=== PATIENT | female | born 1955 | race Caucasian/White ===

== ENCOUNTER 2024-02-26 17:23 | Inpatient (IN) | payer BC, MEDICARE, OTHER ==
--- NOTE | 2024-02-26 18:09 | ED ---
General Adult HPI - General Chief complaint: Recheck/Abnormal Lab/Rx Stated complaint: R Toe Infection Time Seen by Provider: 02/26/24 17:43 Source: patient Mode of arrival: ambulatory Limitations: no limitations - History of Present Illness Initial comments: 68-year-old female with a past medical history significant for type 2 diabetes presenting to the ED with a chief complaint of right toe infection. Patient reports initially about a week and a half ago started to experience some pain of her right great toe. Saw her PCP and was prescribed clindamycin 300 mg 3 times daily on 02/18/2024. Patient reports that she has been taking this as prescribed and finished her last dose last night. However, over the last 2 days has had increasing discoloration of her right great toe noting that it has started to become darker. Does note a history of neuropathy however does note that it seems to have worsened in pain as well. Denies any recent injury to the toe. No fever or chills. No chest pain shortness of breath. No other complaints at this time. - Related Data Home Medications Medication Instructions Recorded Confirmed Fluticasone Nasal [place] [Flonase 1 spr EA NOSTRIL DAILY 02/26/24 02/26/24 Nasal [place]] Insulin Glargine,Hum.rec.anlog 40 units SQ HS 02/26/24 02/26/24 [Lantus Solostar Pen] L.acidoph,Paracasei, B.lactis 1 cap PO DAILY 02/26/24 02/26/24 [Probiotic] Levothyroxine Sodium [Synthroid] 137 mcg PO DAILY 02/26/24 02/26/24 Losartan/Hydrochlorothiazide 1 tab PO DAILY 02/26/24 02/26/24 [Hyzaar 100-25 Tablet] Montelukast [Singulair] 10 mg PO HS 02/26/24 02/26/24 Pravastatin Sodium [Pravachol] 40 mg PO HS 02/26/24 02/26/24 Sennosides/Docusate Sodium 1 tab PO HS 02/26/24 02/26/24 [Senna-S 8.6-50 mg Tablet] Sodium Chloride [Saline Mist] 1 spr EA NOSTRIL DAILY PRN 02/26/24 02/26/24 Tirzepatide [Mounjaro] 10 mg SQ ORTIZ 02/26/24 02/26/24 amLODIPine [Norvasc] 10 mg PO DAILY 02/26/24 02/26/24 guaiFENesin [Mucinex] 600 mg PO BID 02/26/24 02/26/24 metFORMIN HCL 1,000 mg PO BID 02/26/24 02/26/24 traZODone HCL [Desyrel] 50 mg PO HS 02/26/24 02/26/24 Allergies Allergy/AdvReac Type Severity Reaction Status Date / Time Iodinated Contrast Media Allergy Rash/Hives Verified 02/26/24 20:25 Penicillins Allergy Rash/Hives Verified 02/26/24 20:25 Sulfa (Sulfonamide Allergy Rash/Hives Verified 02/26/24 20:25 Antibiotics) Review of Systems ROS Statement: Those systems with pertinent positive or pertinent negative responses have been documented in the HPI. ROS Other: All systems not noted in ROS Statement are negative. Past Medical History Past Medical History: Coronary Artery Disease (CAD), Diabetes Mellitus, Hypertension Additional Past Medical History / Comment(s): Heart Murmur. History of Any Multi-Drug Resistant Organisms: None Reported Past Surgical History: Section Past Psychological History: No Psychological Hx Reported Smoking Status: Never smoker Past Alcohol Use History: None Reported Past Drug Use History: None Reported General Exam Limitations: no limitations General appearance: alert, in no apparent distress Eye exam: Present: normal appearance Neck exam: Present: normal inspection Respiratory exam: Present: normal lung sounds bilaterally Cardiovascular Exam: Present: regular rate GI/Abdominal exam: Present: soft Extremities exam: Present: other (DP/PT pulses of right lower extremity intact. Right great toe does show peeling of skin with areas of redness, warmth, suzette thema. Does show areas of some dried blood and some ecchymosis and areas possibly concerning for gangrene) Neurological exam: Present: alert, oriented X3 Skin exam: Present: warm, dry Course Vital Signs 02/26/24 02/26/24 02/26/24 17:32 18:35 19:31 Temperature 98.2 F Pulse Rate 85 87 81 Respiratory 18 18 16 Rate Blood Pressure 184/82 165/81 169/67 O2 Sat by Pulse 99 97 96 Oximetry Medical Decision Making - Medical Decision Making Was pt. sent in by a medical professional or institution (, PA, OTR TANKER TRUCK DRIVER, urgent care, hospital, or longterm...) When possible be specific @ -No Did you speak to anyone other than the patient for history (EMS, parent, family, police, friend...)? What history was obtained from this source @ -No Did you review nursing and triage notes (agree or disagree)? Why? @ -I reviewed and agree with nursing and triage notes Were old charts reviewed (outside hosp., previous admission, EMS record, old EKG, old radiological studies, urgent care reports/EKG's, longterm records)? Report findings @ -No old charts were reviewed Differential Diagnosis (chest pain, altered mental status, abdominal pain women, abdominal pain men, vaginal bleeding, weakness, fever, dyspnea, syncope, headache, dizziness, GI bleed, back pain, seizure, CVA, palpatations, mental health, musculoskeletal)? @ -Differential Musculoskeletal Muscular strain, contusion, ligament sprain, fracture, arthritis, septic arthritis, bursitis, cellulitis, muscle spasm, nerve compression, DVT, arterial occlusion, herpes zoster, electrolyte abnormality, tumor.... This is not meant to be in all inclusive list EKG interpreted by me (3pts min.). @ -None X-rays interpreted by me (1pt min.). @ -X-ray of the right toe interpreted me which revealed no evidence of acute finding. CT interpreted by me (1pt min.). @ -None done U/S interpreted by me (1pt. min.). @ -None done What testing was considered but not performed or refused? (CT, X-rays, U/S, labs)? Why? @ -None What meds were considered but not given or refused? Why? @ -None Did you discuss the management of the patient with other professionals (professionals i.e. , PA, OTR TANKER TRUCK DRIVER, lab, RT, psych nurse, social studies teacher, property consultant, teacher, senior major gifts officer, corrections caseworker)? Give summary @ -Case discussed with Idris who accepts admission under [facility]. Was smoking cessation discussed for >3mins.? @ -No Was critical care preformed (if so, how long)? @ -No Were there social determinants of health that impacted care today? How? (Homelessness, low income, unemployed, alcoholism, drug addiction, transportation, low edu. Level, literacy, decrease access to med. care, retirement, rehab)? @ -No Was there de-escalation of care discussed even if they declined (Discuss DNR or withdrawal of care, Hospice)? DNR status @ -No What co-morbidities impacted this encounter? (DM, HTN, Smoking, COPD, CAD, Can cer, CVA, ARF, Chemo, Hep., AIDS, mental health diagnosis, sleep apnea, morbid obesity)? @ -Type 2 diabetes Was patient admitted / discharged? Hospital course, mention meds given and route, prescriptions, significant lab abnormalities, going to OR and other pertinent info. @ -Admission 68-year-old female with history of neuropathy and type 2 diabetes presented to the ED with complaints of right great toe pain. Reports approximately week and a half ago started to experience pain of her right great toe and was prescribed clindamycin 300 mg 3 times daily on 02/18/2024. Despite taking this medication she reports that pain has seemed to worsen in severity and reports increasing discoloration of her right great toe. Laboratory studies reviewed. CBC si gnificant for elevated white blood cell count at 13.3. Remainder of laboratory studies largely unremarkable. Patient will be admitted due to failure of outpatient treatment with worsening changes to with with consults to infectious disease and orthopedics. Undiagnosed new problem with uncertain prognosis? @ -No Drug Therapy requiring intensive monitoring for toxicity (Heparin, Nitro, Insulin, Cardizem)? @ -No Were any procedures done? @ -No Diagnosis/symptom? @ -Right great toe infection Acute, or Chronic, or Acute on Chronic? @ -Acute Uncomplicated (without systemic symptoms) or Complicated (systemic symptoms)? @ -Uncomplicated Side effects of treatment? @ -No Exacerbation, Progression, or Severe Exacerbation? @ -No Poses a threat to life or bodily function? How? (Chest pain, [place], [place], pneumonia, PE, COPD, DKA, ARF, appy, cholecystitis, CVA, Diverticulitis, Homicidal, Suicidal, threat to staff... and all critical care pts) @ -Possibly - Lab Data Result diagrams: 02/26/24 18:34 02/26/24 18:34 Lab Results 02/26/24 02/26/24 02/26/24 Range/Units 18:34 18:34 18:34 WBC 13.3 H (3.8-10.6) k/uL RBC 4.80 (3.80-5.40) m/uL Hgb 13.9 (11.4-16.0) gm/dL Hct 41.2 (34.0-46.0) % MCV 85.8 (80.0-100.0) fL MCH 29.1 (25.0-35.0) pg MCHC 33.9 (31.0-37.0) g/dL RDW 12.3 (11.5-15.5) % Plt Count 181 (150-450) k/uL MPV 7.6 Neutrophils % 75 % Lymphocytes % 19 % Monocytes % 4 % Eosinophils % 1 % Basophils % 1 % Neutrophils # 9.9 H (1.3-7.7) k/uL Lymphocytes # 2.5 (1.0-4.8) k/uL Monocytes # 0.5 (0-1.0) k/uL Eosinophils # 0.2 (0-0.7) k/uL Basophils # 0.1 (0-0.2) k/uL Sodium 136 L (137-145) mmol/L Potassium 4.8 (3.5-5.1) mmol/L Chloride 100 (98-107) mmol/L Carbon Dioxide 25 (22-30) mmol/L Anion Gap 11 mmol/L BUN 17 (7-17) mg/dL Creatinine 0.46 L (0.52-1.04) mg/dL Est GFR (CKD-EPI)AfAm >90 (>60 ml/min/1.73 sqM) Est GFR (CKD-EPI)NonAf >90 (>60 ml/min/1.73 sqM) Glucose 118 H (74-99) mg/dL Calcium 9.7 (8.4-10.2) mg/dL Total Bilirubin 0.7 (0.2-1.3) mg/dL AST 29 (14-36) U/L ALT 19 (4-34) U/L Alkaline Phosphatase 78 (38-126) U/L C-Reactive Protein <0.5 (<1.0) mg/dL Total Protein 8.1 (6.3-8.2) g/dL Albumin 4.8 (3.5-5.0) g/dL Urine Color Colorless Urine Appearance Clear (Clear) Urine pH 5.5 (5.0-8.0) Ur Specific [place] 1.008 (1.001-1.035) Urine Protein Negative (Negative) Urine Glucose (UA) Negative (Negative) Urine Ketones Negative (Negative) Urine Blood Negative (Negative) Urine Nitrite Negative (Negative) Urine Bilirubin Negative (Negative) Urine Urobilinogen <2.0 (<2.0) mg/dL Ur Leukocyte Esterase Negative (Negative) Disposition Clinical Impression: Toe infection Disposition: ADMITTED IP TO THIS HOSP Condition: Good Referrals: Juwan Cohen MD [Primary Care Provider] - 1-2 days Time of Disposition: 20:15
[2024-02-26 18:52] LABS: Basophils # (A) 0.1 k/uL (0-0.2); Basophils % (A) 1 %; Eosinophils # (A) 0.2 k/uL (0-0.7); Eosinophils % (A) 1 %; HCT 41.2 % (34.0-46.0); HGB 13.9 gm/dL (11.4-16.0); Lymphocytes # (A) 2.5 k/uL (1.0-4.8); Lymphocytes % (A) 19 %; MCH 29.1 pg (25.0-35.0); MCHC 33.9 g/dL (31.0-37.0); MCV 85.8 fL (80.0-100.0); Mean Platelet Volume 7.6; Monocytes # (A) 0.5 k/uL (0-1.0); Monocytes % (A) 4 %; Neutrophils # (A) 9.9 k/uL (1.3-7.7); Neutrophils % (A) 75 %; Platelet Count 181 k/uL (150-450); RDW 12.3 % (11.5-15.5); WBC 13.3 k/uL (3.8-10.6)
[2024-02-26 18:55] LABS: Appearance,Urine Clear (Clear); Bilirubin,Urine Negative (Negative); Blood,Urine Negative (Negative); Color,Urine Colorless; Glucose,Urine (UA) Negative (Negative); Ketones,Urine Negative (Negative); Leukocyte Esterase,Urine Negative (Negative); Nitrite,Urine Negative (Negative); PH, Urine 5.5 (5.0-8.0); Protein,Urine Negative (Negative); Specific Gravity,Urine 1.008 (1.001-1.035); Urobilinogen,Urine <2.0 mg/dL (<2.0)
[2024-02-26 19:25] LABS: ALT 19 U/L (4-34); AST 29 U/L (14-36); African American GFR (CKD) >90 (>60 ml/min/1.73 sqM); Albumin 4.8 g/dL (3.5-5.0); Alkaline Phosphatase 78 U/L (38-126); Anion Gap 11 mmol/L; Blood Urea Nitrogen 17 mg/dL (7-17); C Reactive Protein <0.5 mg/dL (<1.0); Calcium 9.7 mg/dL (8.4-10.2); Carbon Dioxide 25 mmol/L (22-30); Chloride 100 mmol/L (98-107); Glucose 118 mg/dL (74-99); Non-African American GFR(CKD) >90 (>60 ml/min/1.73 sqM); Sodium 136 mmol/L (137-145); Total Bilirubin 0.7 mg/dL (0.2-1.3); Total Protein 8.1 g/dL (6.3-8.2)
[2024-02-26 19:30] LABS: Potassium 4.8 mmol/L (3.5-5.1)
--- NOTE | 2024-02-26 19:59 | XR ---
EXAMINATION TYPE: XR toes RT DATE OF EXAM: 02/26/2024 7:01 PM CLINICAL INDICATION:Female, 68 years old with history of r great toe infection; [facility] COMPARISON: None. TECHNIQUE: 3 views right great toe FINDINGS: Osseous mineralization appears appropriate. No acute fracture, dislocation, or osseous destructive pr ocess. Moderate degenerative change of the MTP joint with hallux valgus deformity and overlying bunio n. No periarticular erosions. Mild degenerative change throughout the other imaged bones of the foot. Possible small skin ulceration/irregularity of the distal great toe near the level of the interphalan geal joint, correlate clinically. No radiopaque foreign body. IMPRESSION: No acute osseous abnormality of the right great toe.
[2024-02-26] MEDS ORDERED: VANCOMYCIN IV PER PHARMACY 1 EACH MISC MISCELLANE PRN (21:02)
[2024-02-26] MEDS ORDERED: NALOXONE 0.4 MG/ML 1 ML VIAL IV PRN (21:03)
[2024-02-26] MEDS ORDERED: ONDANSETRON 4 MG/2 ML VIAL IVP PRN (21:08)
[2024-02-26] MEDS ORDERED: HYDROmorphone 0.5 MG/0.5 ML SYRINGE IVP PRN (21:08)
[2024-02-26] MEDS ORDERED: HYDROmorphone 1 MG/ML 1 ML SYRINGE IVP PRN (21:08)
[2024-02-26] MEDS: SODIUM CHLORIDE 0.9% 1,000 ML IV SCH (21:37)
[2024-02-26] MEDS: VANCOMYCIN 1,500 MG in SODIUM CHLORIDE 0.9% 500 ML 500 ML IVPB STA (21:38)
[2024-02-26] MEDS ORDERED: guaiFENesin 600 MG TABLET.ER PO PRN (22:53)
[2024-02-26] MEDS ORDERED: DEXTROSE 50% SYRINGE 50 ML IVP PRN ×2 (22:56)
[2024-02-26] MEDS ORDERED: amLODIPine 10 MG TAB PO SCH (23:00)
[2024-02-26] MEDS: amLODIPine 10 MG TAB PO SCH (23:18)
[2024-02-26] MEDS: SENNOSIDES-DOCUSATE SODIUM 1 EACH TAB PO SCH (23:18)
[2024-02-26] MEDS: traZODone HCL 50 MG TAB PO SCH (23:18)
[2024-02-26] MEDS: MONTELUKAST 10 MG TAB PO SCH (23:19)
[2024-02-26] MEDS: PRAVASTATIN SODIUM 40 MG TAB PO SCH (23:19)
[2024-02-26] MEDS: INSULIN DETEMIR (LEVEMIR) 100 UNIT/ML SYR SQ SCH (23:19)
[2024-02-26 23:24] LABS: Glucose,Whole Blood 130 mg/dL (70-110)
[2024-02-27] MEDS: LEVOTHYROXINE 137 MCG TAB PO SCH (05:27)
[2024-02-27 05:35] LABS: Glucose,Whole Blood 64 mg/dL (70-110)
[2024-02-27 05:53] LABS: Glucose,Whole Blood 146 mg/dL (70-110)
[2024-02-27] MEDS: INSULIN ASPART (NovoLOG) 100 UNIT/ML VIAL SQ SCH (05:57)
[2024-02-27] MEDS: VANCOMYCIN 1,500 MG in SODIUM CHLORIDE 0.9% 500 ML 500 ML IVPB SCH (09:00)
[2024-02-27] MEDS ORDERED: amLODIPine 10 MG TAB PO SCH (09:00)
[2024-02-27] MEDS: FLUTICASONE 50MCG/SPRAY NASAL 16GM EA NOSTRIL SCH (10:00)
--- NOTE | 2024-02-27 10:20 | P.CNOR ---
History of Present Illness - HPI Consult date: 02/27/24 Consult reason: other (Right great toe infection) History of present illness: The patient is a 68-year-old female with a history of type II diabetes mellitus, who presented to the emergency department with a infection in her right great toe. She states that she noticed a sore tender area to left side of her toe that started after getting new shoes. She had to wait a week to get into her primary care physician and he started her on clindamycin. She completed the oral antibiotics and the toe continued to worsen. The patient was concerned and presented to the emergency department. Orthopedics was consulted for further evaluation. Overall the patient feels okay and denies fever and chills. Culture was sent this morning. Infectious disease is also on consultation. Review of Systems Constitutional: Denies chills, Denies fatigue, Denies fever Cardiovascular: Denies chest pain, Denies shortness of breath Respiratory: Denies cough Gastrointestinal: Denies diarrhea, Denies nausea, Denies vomiting Musculoskeletal: right: foot pain, foot stiffness, foot swelling Past Medical History Past Medical History: Coronary Artery Disease (CAD), Diabetes Mellitus, Hypertension Additional Past Medical History / Comment(s): Heart Murmur. History of Any Multi-Drug Resistant Organisms: None Reported Past Surgical History: Section Past Psychological History: No Psychological Hx Reported Smoking Status: Never smoker Past Alcohol Use History: None Reported Past Drug Use History: None Reported Medications and Allergies Home Medications Medication Instructions Recorded Confirmed Type Fluticasone Nasal [place] [Flonase 1 spr EA NOSTRIL DAILY 02/26/24 02/26/24 History Nasal [place]] Insulin Glargine,Hum.rec.anlog 40 units SQ HS 02/26/24 02/26/24 History [Lantus Solostar Pen] L.acidoph,Paracasei, B.lactis 1 cap PO DAILY 02/26/24 02/26/24 History [Probiotic] Levothyroxine Sodium [Synthroid] 137 mcg PO DAILY 02/26/24 02/26/24 History Losartan/Hydrochlorothiazide 1 tab PO DAILY 02/26/24 02/26/24 History [Hyzaar 100-25 Tablet] Montelukast [Singulair] 10 mg PO HS 02/26/24 02/26/24 History Pravastatin Sodium [Pravachol] 40 mg PO HS 02/26/24 02/26/24 History Sennosides/Docusate Sodium 1 tab PO HS 02/26/24 02/26/24 History [Senna-S 8.6-50 mg Tablet] Sodium Chloride [Saline Mist] 1 spr EA NOSTRIL DAILY PRN 02/26/24 02/26/24 History Tirzepatide [Mounjaro] 10 mg SQ ORTIZ 02/26/24 02/26/24 History amLODIPine [Norvasc] 10 mg PO DAILY 02/26/24 02/26/24 History guaiFENesin [Mucinex] 600 mg PO BID 02/26/24 02/26/24 History metFORMIN HCL 1,000 mg PO BID 02/26/24 02/26/24 History traZODone HCL [Desyrel] 50 mg PO HS 02/26/24 02/26/24 History Allergies Allergy/AdvReac Type Severity Reaction Status Date / Time Iodinated Contrast Media Allergy Rash/Hives Verified 02/26/24 20:25 Penicillins Allergy Rash/Hives Verified 02/26/24 20:25 Sulfa (Sulfonamide Allergy Rash/Hives Verified 02/26/24 20:25 Antibiotics) Physical Examination The patient is a 68-year-old female in no acute distress. She is alert and oriented x 3. A new dressing was just applied to the right foot but the patient's nurse just took pictures of the toe. Upon review of the pictures there is a deep redness to the toe with peeling skin there is no area of abscess or obvious purulent drainage. There is no proximal red streaking into the foot or ankle. Calf is soft and nontender. Good foot and ankle motion. Circulatory and neurological status is intact. Results X-ray of the right foot dated 02/26/2024 reveals no obvious fracture and no bony destruction concerning of osteomyelitis. - Labs Labs: Abnormal Lab Results - Last 24 Hours (Table) 02/26/24 02/26/24 02/26/24 Range/Units 18:34 18:34 23:17 WBC 13.3 H (3.8-10.6) k/uL Neutrophils # 9.9 H (1.3-7.7) k/uL Sodium 136 L (137-145) mmol/L Creatinine 0.46 L (0.52-1.04) mg/dL Glucose 118 H (74-99) mg/dL POC Glucose (mg/dL) 130 H (70-110) mg/dL 02/27/24 02/27/24 Range/Units 05:32 05:50 WBC (3.8-10.6) k/uL Neutrophils # (1.3-7.7) k/uL Sodium (137-145) mmol/L Creatinine (0.52-1.04) mg/dL Glucose (74-99) mg/dL POC Glucose (mg/dL) 64 L 146 H (70-110) mg/dL H & H 02/26/24 Range/Units 18:34 Hgb 13.9 (11.4-16.0) gm/dL Hct 41.2 (34.0-46.0) % Result Diagrams: 02/26/24 18:34 02/26/24 18:34 Assessment and Plan (1) Toe infection Current Visit: Yes Status: Acute Code(s): L08.9 - LOCAL INFECTION OF THE SKIN AND SUBCUTANEOUS TISSUE, UNSP SNOMED Code(s): 239704211 (2) Diabetes mellitus Current Visit: Yes Status: Acute Code(s): E11.9 - TYPE 2 DIABETES MELLITUS WITHOUT COMPLICATIONS SNOMED Code(s): 74365340 Plan: The clinical and x-ray findings were discussed with the patient. The case was discussed with Dr. Toledo. The patient believes that her toe has improved since starting antibiotics yesterday. No surgical intervention is planned at this time. We will await culture results. Continue IV antibiotics per infectious disease. We will continue to follow patient closely and a formal I&D may be needed if the patient's condition does not improve or worsen.
[2024-02-27 11:17] LABS: Glucose,Whole Blood 180 mg/dL (70-110)
[2024-02-27] MEDS ORDERED: ALBUTEROL NEBULIZED 2.5 MG/3 ML INHALATION PRN (12:41)
--- NOTE | 2024-02-27 13:24 | HP ---
HISTORY AND PHYSICAL CHIEF COMPLAINT: Right toe infection. HISTORY OF PRESENT ILLNESS: This is a 68-year-old woman with a past medical history of multiple medical problems including diabetes type 2, was complaining of right toe infection. The patient had initially pain and swelling. The patient was taking clindamycin at least for a week. The patient apparently started noticing the symptoms after wearing shoes without socks on the day of eclipse according to her. There is no history of any fever, rigors, or chills. PAST MEDICAL HISTORY: Reviewed include CAD, diabetes mellitus type 2, rest of the history and chart is noted. HOME MEDICATIONS: Ventolin HFA, dose and rest of medications noted. ALLERGIES: Iodinated contrast dyes, rest of the medications noted. FAMILY HISTORY: No history of heart disease or strokes in the family. SOCIAL HISTORY: No history of smoking. REVIEW OF SYSTEMS: A 14-point review is negative except as mentioned. PHYSICAL EXAMINATION: VITAL SIGNS: Pulse 79, blood pressure 130/60, respirations 17. HEENT: Conjunctivae normal. NECK: No jugular venous distention. CARDIOVASCULAR: S1, S2. RESPIRATIONS: Diminished breath sounds. ABDOMEN: Soft, nontender. LEGS: Right big toe which is bandaged at this time. NERVOUS SYSTEM: No focal deficits. SKIN: As mentioned. LABORATORY DATA: WBC 13.2. ASSESSMENT: 1. Right big toe infection with cellulitis and failure of outpatient treatment. 2. Diabetes mellitus type 2. 3. Coronary artery disease. 4. Hypertension. RECOMMENDATIONS AND DISCUSSION: This 68-year-old woman presented with multiple complex medical issues, we will monitor the patient closely. Continue with broad-spectrum IV antibiotics cultures. Resume the home medications. DVT prophylaxis. Closely follow with Infectious Disease and Orthopedic surgery. No surgical evaluation currently per Orthopedic surgery. Prognosis guarded. Further recommendations to follow. See orders for details. MMODL / IJN: [id number] /
[2024-02-27 13:46] LABS: Glucose,Whole Blood 269 mg/dL (70-110)
[2024-02-27] MEDS: HEPARIN SODIUM,PORCINE 5,000 UNIT/ML 1 ML VIAL SQ SCH (14:01)
[2024-02-27] MEDS: INSULIN ASPART (NovoLOG) 100 UNIT/ML VIAL SQ ONE (14:02)
[2024-02-27] MEDS: TIRZEPATIDE 10 MG/0.5 ML SQ SCH (14:10)
[2024-02-27 17:06] LABS: Glucose,Whole Blood 190 mg/dL (70-110)
[2024-02-27 20:43] LABS: Glucose,Whole Blood 145 mg/dL (70-110)
[2024-02-27] MEDS: metFORMIN 500 MG TAB PO SCH (21:27)
[2024-02-28] MEDS: ACETAMINOPHEN TAB 325 MG TAB PO PRN (01:01)
[2024-02-28 06:11] LABS: Glucose,Whole Blood 79 mg/dL (70-110)
[2024-02-28 07:38] LABS: African American GFR (CKD) >90 (>60 ml/min/1.73 sqM); Anion Gap 6 mmol/L; Blood Urea Nitrogen 11 mg/dL (7-17); Calcium 8.9 mg/dL (8.4-10.2); Carbon Dioxide 29 mmol/L (22-30); Chloride 108 mmol/L (98-107); Glucose 83 mg/dL (74-99); Non-African American GFR(CKD) >90 (>60 ml/min/1.73 sqM); Potassium 3.9 mmol/L (3.5-5.1); Sodium 143 mmol/L (137-145)
[2024-02-28] MEDS: LOSARTAN-HCTZ 50-12.5 MG 1 EACH TAB PO SCH (09:25)
[2024-02-28] MEDS: LACTOBACILLUS ACIDOPHILUS/PECT 1 EACH CAPSULE PO SCH (09:25)
[2024-02-28] MEDS ORDERED: SODIUM CHLORIDE 0.65% NASAL SPRAY 44 ML BTL INTRANASAL PRN (10:35)
[2024-02-28] MEDS: ENOXAPARIN 40 MG/0.4 ML SYRINGE SQ SCH (11:27)
[2024-02-28 11:31] LABS: Basophils # (A) 0.11 X 10*3/uL (0.00-0.10); Basophils % (A) 1.4 %; Eosinophils # (A) 0.23 X 10*3/uL (0.04-0.35); HCT 38.2 % (37.2-46.3); HGB 12.4 g/dL (12.0-15.0); Lymphocytes # (A) 3.21 X 10*3/uL (0.90-5.00); Lymphocytes % (A) 41.3 %; MCH 28.4 pg (27.0-32.0); MCHC 32.5 g/dL (32.0-37.0); MCV 87.4 FL (80.0-97.0); Mean Platelet Volume 9.8 FL (9.5-12.2); Monocytes # (A) 0.49 X 10*3/uL (0.20-1.00); Monocytes % (A) 6.3 %; NRBC Per 100 WBC 0 X 10*3/uL (0.00-0.01); Neutrophils # (A) 3.72 X 10*3/uL (1.80-7.70); Neutrophils % (A) 47.7 %; Platelet Count 190 X 10*3/uL (140-440); RBC 4.37 X 10*6/uL (4.10-5.20); RDW 12.4 % (11.5-14.5); WBC 7.78 X 10*3/uL (4.50-10.00)
--- NOTE | 2024-02-28 12:25 | P.PN ---
Subjective Progress Note Date: 02/28/24 Principal diagnosis: Reason for follow-up is right big toe diabetic foot infection Patient is a 68-year-old female past medical history significant for diabetes mellitus type 2 hypertension coronary artery disease presented to hospital with a nonhealing wound to the right big toe with associated cellulitis. On today's evaluation that is 02/28/2024, Patient is afebrile patient is currently on room air and denies having any shortness of breath, the patient denies any chest pain or cough, the patient denies any nausea vomiting did not have any abdominal pain and no diarrhea, swelling and redness to the right big toe slightly decreased no drainage. Patient white count is 7.78, creatinine 0.48 cultures currently pending Objective - Vital Signs Vital signs: Vital Signs Temp 98.3 F 02/28/24 07:00 Pulse 70 02/28/24 07:00 Resp 16 02/28/24 07:00 BP 147/68 02/28/24 07:00 Pulse Ox 97 02/28/24 07:00 FiO2 Intake & Output 02/27/24 02/28/24 02/28/24 18:59 06:59 18:59 Intake Total 180 Balance 180 Intake: Oral 180 Other: Voiding Method Toilet # Voids 3 1 - Exam GENERAL DESCRIPTION: An elderly female male lying in bed in no distress RESPIRATORY SYSTEM: Unlabored breathing , decreased breath sounds at bases HEART: S1 S2 regular rate and rhythm , ABDOMEN: Soft , no tenderness EXTREMITIES: Right big toe medial aspect did have a wound with some callus that was easily peeled off did have mostly features of a bruise and some redness - Labs CBC & Chem 7: 02/28/24 06:39 02/28/24 06:39 Labs: Abnormal Lab Results - Last 24 Hours (Table) 02/27/24 02/27/24 02/27/24 Range/Units 07:21 13:45 17:05 Basophils # (0.00-0.10) X 10*3/uL Chloride (98-107) mmol/L Creatinine (0.52-1.04) mg/dL POC Glucose (mg/dL) 269 H 190 H (70-110) mg/dL Hemoglobin A1c 7.2 H (<=6.0) % 02/27/24 02/28/24 02/28/24 Range/Units 20:42 06:39 06:39 Basophils # 0.11 H (0.00-0.10) X 10*3/uL Chloride 108 H (98-107) mmol/L Creatinine 0.48 L (0.52-1.04) mg/dL POC Glucose (mg/dL) 145 H (70-110) mg/dL Hemoglobin A1c (<=6.0) % Microbiology - Last 24 Hours (Table) 02/27/24 09:00 Gram Stain - Preliminary Toe - Right First Wound Culture - Preliminary Assessment and Plan (1) Diabetic foot infection Current Visit: Yes Status: Acute Code(s): E11.628 - TYPE 2 DIABETES MELLITUS WITH OTHER SKIN COMPLICATIONS; L08.9 - LOCAL INFECTION OF THE SKIN AND SUBCUTANEOUS TISSUE, UNSP SNOMED Code(s): 058366587 (2) Cellulitis of right foot Current Visit: Yes Status: Acute Code(s): L03.115 - CELLULITIS OF RIGHT L OWER LIMB SNOMED Code(s): 88992486536193374 (3) Allergy to multiple antibiotics Current Visit: Yes Status: Acute Code(s): Z88.1 - ALLERGY STATUS TO OTHER ANTIBIOTIC AGENTS SNOMED Code(s): 804546414 Plan: 1patient presented to hospital with right big toe swelling redness and some discoloration symptom has been going on for about 2 to 3 weeks did have some drainage failing outpatient oral clindamycin therapy 2patient with multiple antibiotic ALLERGIES that would limit the number of antibiotic safe to use, patient has listed penicillin as allergy however she tells me that she has taken amoxicillin without any problem clinical doubt true penicillin allergy 3local culture has been obtained which are currently pending 4we will add Unasyn and continue with vancomycin pharmacy to dose while waiting for the culture to finalize Multiple question concern answered Dictation was produced using [employer] dictation software. please excuse any grammatical, word or spelling errors. Time with Patient: Less than 30
[2024-02-28 12:33] LABS: Glucose,Whole Blood 113 mg/dL (70-110)
[2024-02-28] MEDS: AMPICILLIN-SULBACTAM 3 GM in SODIUM CHLORIDE 0.9% 100 ML IVPB SCH (13:32)
--- NOTE | 2024-02-28 15:25 | P.PN ---
Subjective Progress Note Date: 02/28/24 Principal diagnosis: Right great toe infection The patient is a 68-year-old female with a history of type II diabetes mellitus, who presented to the emergency department with a infection in her right great toe. She states that she noticed a sore tender area to left side of her toe that started after getting new shoes. She had to wait a week to get into her primary care physician and he started her on clindamycin. She completed the oral antibiotics and the toe continued to worsen. The patient was concerned and presented to the emergency department. Orthopedics was consulted for further evaluation. Overall the patient feels okay and denies fever and chills. Culture was sent this morning. Infectious disease is also on consultation. 02/26/2024: The patient states her toe is feeling better. No new complaints. Culture is pending. Objective - Vital Signs Vital signs: Vital Signs Temp 97.8 F 02/28/24 13:56 Pulse 72 02/28/24 13:56 Resp 16 02/28/24 13:56 BP 168/72 02/28/24 13:56 Pulse Ox 98 02/28/24 13:56 FiO2 Intake & Output 02/27/24 02/28/24 02/28/24 18:59 06:59 18:59 Intake Total 402 Balance 402 Intake: Oral 402 Other: Voiding Method Toilet # Voids 3 1 4 # Bowel Movements 1 - Exam The patient is a 68-year-old female in no acute distress. She is alert and oriented x 3. The dressing was removed. There is deep redness to the toe with peeling skin there is no area of abscess or obvious purulent drainage. No active drainage at this time. There is no proximal red streaking into the foot or ankle. Calf is soft and nontender. Good foot and ankle motion. Circulatory in intact and neurological status is diminished due to her history of diabetes neuropathy. - Labs CBC & Chem 7: 02/28/24 06:39 02/28/24 06:39 Labs: Abnormal Lab Results - Last 24 Hours (Table) 02/27/24 02/27/24 02/28/24 Range/Units 17:05 20:42 06:39 Basophils # (0.00-0.10) X 10*3/uL Chloride 108 H (98-107) mmol/L Creatinine 0.48 L (0.52-1.04) mg/dL POC Glucose (mg/dL) 190 H 145 H (70-110) mg/dL 02/28/24 02/28/24 Range/Units 06:39 12:32 Basophils # 0.11 H (0.00-0.10) X 10*3/uL Chloride (98-107) mmol/L Creatinine (0.52-1.04) mg/dL POC Glucose (mg/dL) 113 H (70-110) mg/dL Microbiology - Last 24 Hours (Table) 02/26/24 20:15 Blood Culture - Preliminary Blood 02/26/24 21:36 Blood Culture - Preliminary Blood 02/27/24 09:00 Gram Stain - Preliminary Toe - Right First Wound Culture - Preliminary Assessment and Plan (1) Toe infection Current Visit: Yes Status: Acute Code(s): L08.9 - LOCAL INFECTION OF THE SKIN AND SUBCUTANEOUS TISSUE, UNSP SNOMED Code(s): 498651660 (2) Diabetes mellitus Current Visit: Yes Status: Acute Code(s): E11.9 - TYPE 2 DIABETES MELLITUS WITHOUT COMPLICATIONS SNOMED Code(s): 45074992 Plan: The clinical and x-ray findings were discussed with the patient. The case was discussed with Dr. Toledo. The patient believes that her toe has improved since starting antibiotics 2 days ago. No surgical intervention is planned at this time. Continue IV antibiotics per infectious disease. The wound appears stable and we will sign off at this time. We can reevaluate if her condition changes.
[2024-02-28 17:32] LABS: Glucose,Whole Blood 154 mg/dL (70-110)
[2024-02-28 20:41] LABS: Glucose,Whole Blood 176 mg/dL (70-110)
[2024-02-29 06:53] LABS: Glucose,Whole Blood 98 mg/dL (70-110)
[2024-02-29 08:11] VITALS: BP 138/65; PULSE 86; RESP 16; TEMP 98.3
[2024-02-29 09:18] LABS: African American GFR (CKD) >90 (>60 ml/min/1.73 sqM); Non-African American GFR(CKD) >90 (>60 ml/min/1.73 sqM)
[2024-02-29 12:46] LABS: Glucose,Whole Blood 163 mg/dL (70-110)
--- NOTE | 2024-02-29 13:13 | P.PN ---
Subjective Progress Note Date: 02/29/24 Principal diagnosis: Reason for follow-up is right big toe diabetic foot infection Patient is a 68-year-old female past medical history significant for diabetes mellitus type 2 hypertension coronary artery disease presented to hospital with a nonhealing wound to the right big toe with associated cellulitis. On today's evaluation that is 02/29/2024, patient has been afebrile, patient is breathing comfortably and is currently on room air, patient denies having any si gnificant cough no chest pain shortness of breath, patient denies nausea vomiting or diarrhea and no abdominal pain, the patient denies pain to the right big toe overall swelling redness improved there is no drainage feeling better. Patient creatinine 0.50 Vanco trough is 13.7 culture has been negative Objective - Vital Signs Vital signs: Vital Signs Temp 98.3 F 02/29/24 08:00 Pulse 86 02/29/24 08:00 Resp 16 02/29/24 08:00 BP 138/65 02/29/24 08:00 Pulse Ox 95 02/29/24 08:00 FiO2 Intake & Output 02/28/24 02/29/24 02/29/24 18:59 06:59 18:59 Intake Total 520 118 Balance 520 118 Intake: Oral 520 118 Other: Voiding Method Toilet Toilet # Voids 4 1 # Bowel Movements 1 - Exam GENERAL DESCRIPTION: An elderly female male lying in bed in no distress RESPIRATORY SYSTEM: Unlabored breathing , decreased breath sounds at bases HEART: S1 S2 regular rate and rhythm , ABDOMEN: Soft , no tenderness EXTREMITIES: Right big toe swelling redness has decreased no drainage - Labs CBC & Chem 7: 02/28/24 06:39 02/29/24 08:12 Labs: Abnormal Lab Results - Last 24 Hours (Table) 02/28/24 02/28/24 02/28/24 Range/Units 06:39 12:32 17:30 Basophils # 0.11 H (0.00-0.10) X 10*3/uL Creatinine (0.52-1.04) mg/dL POC Glucose (mg/dL) 113 H 154 H (70-110) mg/dL 02/28/24 02/29/24 Range/Units 20:40 08:12 Basophils # (0.00-0.10) X 10*3/uL Creatinine 0.50 L (0.52-1.04) mg/dL POC Glucose (mg/dL) 176 H (70-110) mg/dL Microbiology - Last 24 Hours (Table) 02/27/24 09:00 Anaerobic Culture - Preliminary Toe - Right First 02/27/24 09:00 Gram Stain - Final Toe - Right First Wound Culture - Final 02/26/24 20:15 Blood Culture - Preliminary Blood 02/26/24 21:36 Blood Culture - Preliminary Blood Assessment and Plan (1) Diabetic foot infection Current Visit: Yes Status: Acute Code(s): E11.628 - TYPE 2 DIABETES MELLITUS WITH OTHER SKIN COMPLICATIONS; L08.9 - LOCAL INFECTION OF THE SKIN AND SUBCUTANEOUS TISSUE, UNSP SNOMED Code(s): 097695177 (2) Cellulitis of right foot Current Visit: Yes Status: Acute Code(s): L03.115 - CELLULITIS OF RIGHT LOWER LIMB SNOMED Code(s): 77944559454144935 (3) Allergy to multiple antibiotics Current Visit: Yes Status: Acute Code(s): Z88.1 - ALLERGY STATUS TO OTHER ANTIBIOTIC AGENTS SNOMED Code(s): 862069871 Plan: 1patient presented to hospital with right big toe swelling redness and some discoloration symptom has been going on for about 2 to 3 weeks did have some drainage failing outpatient oral clindamycin therapy 2patient with multiple antibiotic ALLERGIES that would limit the number of antibiotic safe to use, patient has listed penicillin as allergy however she tells me that she has taken amoxicillin without any problem clinical doubt true penicillin allergy 3local culture did not grow any MRSA or resistant bacteremia 4patient has tolerated Unasyn clinical doubt true penicillin allergy we will r ecommend a 2-week course of oral Augmentin on discharge prescription sent to the pharmacy and close outpatient follow-up local care with a dry Aquacel dressing multiple question concern answered and case was discussed with the patient nurse Dictation was produced using [employer] dictation software. please excuse any grammatical, word or spelling errors. Time with Patient: Less than 30
--- NOTE | 2024-02-29 19:28 | P.PN ---
Progress Note - Text Progress Note Date: 02/28/24 Hospital course: Admitted with acute right foot big toe infection February 27: Right foot in a dressing. Some pain is present. Dressing change was done this morning. Patient states the right toe is looking better. Did tolerate some diet. Denies any fever and chills. Patient has no prior history of CAD. at the bedside. Active Medications Acetaminophen (Acetaminophen Tab 325 Mg Tab) 650 mg PO Q6HR PRN PRN Reason: Mild Pain or Fever > 100.5 Last Admin: 02/28/24 01:01 Dose: 650 mg Albuterol Sulfate (Albuterol Nebulized 2.5 Mg/3 Ml) 2.5 mg INHALATION RT-QID PRN PRN Reason: Shortness Of Breath Amlodipine Besylate (Amlodipine 10 Mg Tab) 10 mg PO HS [facility] Last Admin: 02/28/24 22:05 Dose: 10 mg Dextrose/Water (Dextrose 50% Syringe 50 Ml) 25 ml IVP PER PROTOCOL PRN; Protocol PRN Reason: Hypoglycemia Dextrose/Water (Dextrose 50% Syringe 50 Ml) 50 ml IVP PER PROTOCOL PRN; Protocol PRN Reason: Hypoglycemia Enoxaparin Sodium (Enoxaparin 40 Mg/0.4 Ml Syringe) 40 mg SQ DAILY [facility] Last Admin: 02/28/24 11:27 Dose: Not Given Fluticasone Propionate (Fluticasone 50mcg/[place] Nasal 16gm) 1 spray EA NOSTRIL DAILY [facility] Last Admin: 02/28/24 09:25 Dose: 1 spray Guaifenesin (Guaifenesin 600 Mg Tablet.Er) 600 mg PO BID PRN PRN Reason: congestion HCTZ/Losartan Potassium (Losartan-Hctz 50-12.5 Mg 1 Each Tab) 2 each PO DAILY [facility] Last Admin: 02/28/24 09:25 Dose: 2 each Hydromorphone HCl (Hydromorphone 0.5 Mg/0.5 Ml Syringe) 0.5 mg IVP Q3HR PRN PRN Reason: Moderate Pain (Scale 4 to 6) Hydromorphone HCl (Hydromorphone 1 Mg/Ml 1 Ml Syringe) 1 mg IVP Q3HR PRN PRN Reason: Severe Pain (Scale 7 to 10) Sodium Chloride (Saline 0.9%) 1,000 mls @ 75 mls/hr IV .[id number] [facility] Last Admin: 02/28/24 13:34 Dose: 75 mls/hr Vancomycin HCl 1,500 mg/ (Sodium Chloride) 500 mls @ 167 mls/hr IVPB Q12H [facility] Last Admin: 02/28/24 22:01 Dose: 167 mls/hr Ampicillin Sodium/Sulbactam (Sodium 3 gm/ Sodium Chloride) 100 mls @ 200 mls/hr IVPB Q6HR [facility]; Protocol Last Admin: 02/28/24 18:00 Dose: 200 mls/hr Insulin Aspart (Insulin Aspart (Novolog) 100 Unit/Ml Vial) 0 unit SQ [facility]; Protocol Last Admin: 02/28/24 22:07 Dose: Not Given Insulin Detemir (Insulin Detemir (Levemir) 100 Unit/Ml Syr) 40 unit SQ [facility] Last Admin: 02/28/24 22:06 Dose: 40 unit Lactobacillus Acidophilus (Lactobacillus Acidophilus/Pect 1 Each Capsule) 1 each PO DAILY [facility] Last Admin: 02/28/24 09:25 Dose: 1 each Levothyroxine Sodium (Levothyroxine 137 Mcg Tab) 137 mcg PO DAILY@0630 [facility] Last Admin: 02/28/24 06:09 Dose: 137 mcg Metformin HCl (Metformin 500 Mg Tab) 1,000 mg PO BID [facility] Last Admin: 02/28/24 22:05 Dose: 1,000 mg Montelukast Sodium (Montelukast 10 Mg Tab) 10 mg PO [facility] Last Admin: 02/28/24 22:05 Dose: 10 mg Naloxone HCl (Naloxone 0.4 Mg/Ml 1 Ml Vial) 0.2 mg IV Q2M PRN PRN Reason: Opioid Reversal Patient's Own ( Tirzepatide [ Mounjaro] 10 Mg/0.5 Ml Pen.Injctr) 10 mg SQ ORTIZ [facility] Last Admin: 02/27/24 14:10 Dose: Not Given Ondansetron HCl (Ondansetron 4 Mg/2 Ml Vial) 4 mg IVP Q8HR PRN PRN Reason: Nausea And Vomiting Pravastatin Sodium (Pravastatin Sodium 40 Mg Tab) 40 mg PO [facility] Last Admin: 02/28/24 22:05 Dose: 40 mg Senna/Docusate Sodium (Sennosides-Docusate Sodium 1 Each Tab) 1 each PO [facility] Last Admin: 02/28/24 22:06 Dose: 1 each Sodium Chloride (Sodium Chloride 0.65% Nasal [place] 44 Ml Btl) 1 spray INTRANASAL DAILY PRN PRN Reason: Congestion Trazodone HCl (Trazodone Hcl 50 Mg Tab) 50 mg PO HS [facility] Last Admin: 02/28/24 22:06 Dose: 50 mg On examination: VITAL SIGNS: [88.5, 78, 15, 167 x 71, 94% room air] GENERAL APPEARANCE: BMI 36.1, reclining in bed HEENT: Normal external appearance of nose and ear. Oral cavity normal EYES: Pupils equal. Conjunctiva normal. NECK: JVD not raised. Mass not palpable. RESPIRATORY: Respiratory effort normal. Lungs clear to auscultation. CARDIOVASCULAR: First and second sounds normal. No edema. ABDOMEN: Soft. Liver and spleen not palpable. No tenderness. No mass palpable. PSYCHIATRY: Alert and oriented x3. Mood and affect normal. MUSCULOSKELETAL: Right foot in a dressing INVESTIGATIONS, reviewed in the clinical context: February 27: White count 7.7 hemoglobin 12.4 platelets 190 sodium 143 potassium 3.9 BUN 11 creatinine 0.48 X-ray toe: Unremarkable Assessment plan: -Acute right big toe cellulitis secondary to diabetes. Having failed outpatient treatment with oral clindamycin. IV Unasyn. Vancomycin. Blood culture and wound culture pending Follow-up with ID. And orthopedics. Wound care and dressing changes -Diabetes mellitus type 2, chronically insulin On insulin. Follow Accu-Cheks. Metformin -Essential hypertension Amlodipine 10 mg nightly. Hyzaar. -Obesity BMI 36.1 Weight loss measures -Hypothyroid Synthroid 137 mcg a day Care was discussed with the patient and .
--- NOTE | 2024-02-29 19:31 | P.DS ---
Providers Date of admission: 02/26/24 20:28 Expected date of discharge: 02/29/24 Attending physician: Dominick Ward Consults: 02/26/24 21:08 Consult Physician Urgent Consulting Provider: Kiki Malave Consult Reason/Comments: r great toe infection Do you want consulting provider notified?: Yes Consult Physician Urgent Consulting Provider: Anna Toledo Consult Reason/Comments: R great toe infection Do you want consulting provider notified?: Yes Primary care physician: [facility] Course: Hospital course: Admitted with acute right foot big toe infection February 27: Right foot in a dressing. Some pain is present. Dressing change was done this morning. Patient states the right toe is looking better. Did tolerate some diet. Denies any fever and chills. Patient has no prior history of CAD. at the bedside. February 28: Right foot cellulitis wound much better. Seen by Dr. Robertson from ID. Cleared for discharge. Discussed with patient at the bedside. Takes 14 more days of Augmentin. On examination: VITAL SIGNS: 98.3, 86, 16, 138 x 65, 95% room air GENERAL APPEARANCE: Comfortable in bed HEENT: Normal external appearance of nose and ear. Oral cavity normal EYES: Pupils equal. Conjunctiva normal. NECK: JVD not raised. Mass not palpable. RESPIRATORY: Respiratory effort normal. Lungs clear to auscultation. CARDIOVASCULAR: First and second sounds normal. No edema. ABDOMEN: Soft. Liver and spleen not palpable. No tenderness. No mass palpable. PSYCHIATRY: Alert and oriented x3. Mood and affect normal. MUSCULOSKELETAL: Right foot in a dressing INVESTIGATIONS, reviewed in the clinical context: February 27: White count 7.7 hemoglobin 12.4 platelets 190 sodium 143 potassium 3.9 BUN 11 creatinine 0.48 X-ray toe: Unremarkable Assessment plan: -Acute right big toe cellulitis secondary to diabetes. Having failed outpatient treatment with oral clindamycin.: Much better IV Unasyn. Vancomycin. Wound culture unremarkable g Wound care and dressing changes Augmentin for 14 days -Diabetes mellitus type 2, chronically insulin On insulin. Follow Accu-Cheks. Metformin -Essential hypertension Amlodipine 10 mg nightly. Hyzaar. -Obesity BMI 36.1 Weight loss measures -Hypothyroid Synthroid 137 mcg a day Disposition: Home Plan - Discharge Summary Discharge Rx Participant: No New Discharge Prescriptions: New Amoxic-Pot Clav 875-125Mg [Augmentin 875-125] 1 tab PO Q12HR 14 Days #28 tab Continue Losartan/Hydrochlorothiazide [Hyzaar 100-25 Tablet] 1 tab PO DAILY Levothyroxine Sodium [Synthroid] 137 mcg PO DAILY Sodium Chloride [Saline Mist] 1 spr EA NOSTRIL DAILY PRN PRN Reason: Congestion Pravastatin Sodium [Pravachol] 40 mg PO HS Insulin Glargine,Hum.rec.anlog [Lantus Solostar Pen] 40 units SQ HS Montelukast [Singulair] 10 mg PO HS guaiFENesin [Mucinex] 600 mg PO BID L.acidoph,Paracasei, B.lactis [Probiotic] 1 cap PO DAILY Fluticasone Nasal [place] [Flonase Nasal [place]] 1 spr EA NOSTRIL DAILY metFORMIN HCL 1,000 mg PO BID amLODIPine [Norvasc] 10 mg PO DAILY Sennosides/Docusate Sodium [Senna-S 8.6-50 mg Tablet] 1 tab PO HS traZODone HCL [Desyrel] 50 mg PO HS Tirzepatide [Mounjaro] 10 mg SQ ORTIZ Albuterol Inhaler [Ventolin Hfa Inhaler] 2 puff INHALATION RT-QID PRN PRN Reason: Shortness Of Breath Discharge Medication List Fluticasone Nasal [place] [Flonase Nasal [place]] 1 spr EA NOSTRIL DAILY 02/26/24 [History] Insulin Glargine,Hum.rec.anlog [Lantus Solostar Pen] 40 units SQ HS 02/26/24 [History] L.acidoph,Paracasei, B.lactis [Probiotic] 1 cap PO DAILY 02/26/24 [History] Levothyroxine Sodium [Synthroid] 137 mcg PO DAILY 02/26/24 [History] Losartan/Hydrochlorothiazide [Hyzaar 100-25 Tablet] 1 tab PO DAILY 02/26/24 [History] Montelukast [Singulair] 10 mg PO HS 02/26/24 [History] Pravastatin Sodium [Pravachol] 40 mg PO HS 02/26/24 [History] Sennosides/Docusate Sodium [Senna-S 8.6-50 mg Tablet] 1 tab PO HS 02/26/24 [History] Sodium Chloride [Saline Mist] 1 spr EA NOSTRIL DAILY PRN 02/26/24 [History] Tirzepatide [Mounjaro] 10 mg SQ ORTIZ 02/26/24 [History] amLODIPine [Norvasc] 10 mg PO DAILY 02/26/24 [History] guaiFENesin [Mucinex] 600 mg PO BID 02/26/24 [History] metFORMIN HCL 1,000 mg PO BID 02/26/24 [History] traZODone HCL [Desyrel] 50 mg PO HS 02/26/24 [History] Albuterol Inhaler [Ventolin Hfa Inhaler] 2 puff INHALATION RT-QID PRN 02/27/24 [History] Amoxic-Pot Clav 875-125Mg [Augmentin 875-125] 1 tab PO Q12HR 14 Days #28 tab 02/29/24 [Rx] Follow up Appointment(s)/Referral(s): Anna Toledo DO [Doctor of Osteopathic Medicine] - 1 Week Juwan Cohen MD [Primary Care Provider] - 1-2 days Kiki Malave MD [STAFF PHYSICIAN] - 1 Week Patient Instructions/Handouts: Cellulitis (ED), Diabetic Foot Ulcers (DC) Activity/Diet/Wound Care/Special Instructions: abx and wound care per dr malave Discharge Disposition: HOME SELF-CARE
--- NOTE | 2024-03-03 16:01 | P.CONS ---
History of Present Illness - Reason for Consult Consult date: 02/27/24 - History of Present Illness Patient is a 68-year-old female past medical history significant for diabetes mellitus type 2 hypertension coronary artery disease has been dealing with right big toe diabetic foot ulcer and cellulitis that has been going on for the last few weeks patient mention symptoms started after February 13 and denies any history of any trauma it looks more like a big bruise with associated swe lling and redness has been evaluated by the primary care physician and has been treated with a course of clindamycin for 7 days did have some improvement in the redness however after completion of antibiotics patient did have progressive swelling redness of the right big toe the patient did have diabetic neuropathy denies significant pain he does have some occasional dull aching pain to note was also having some drainage with worsening symptoms patient presented to hospital on arrival to the ER patient was afebrile and no fever have recorded subsequently patient was not tachycardic hypotensive or hypoxic, patient did have white count of 13.3 creatinine 0.46 liver enzymes are normal urine has been negative x-ray of the toe was negative for any bony abnormality patient was started on vancomycin because of her penicillin allergy infectious he was consulted for further management of antibiotic therapy Past Medical History Past Medical History: Coronary Artery Disease (CAD), Diabetes Mellitus, Hypertension Additional Past Medical History / Comment(s): Heart Murmur. History of Any Multi-Drug Resistant Organisms: None Reported Past Surgical History: Section Past Psychological History: No Psychological Hx Reported Smoking Status: Never smoker Past Alcohol Use History: None Reported Past Drug Use History: None Reported Medications and Allergies Home Medications Medication Instructions Recorded Confirmed Type Fluticasone Nasal [place] [Flonase 1 spr EA NOSTRIL DAILY 02/26/24 02/26/24 History Nasal [place]] Insulin Glargine,Hum.rec.anlog 40 units SQ HS 02/26/24 02/26/24 History [Lantus Solostar Pen] L.acidoph,Paracasei, B.lactis 1 cap PO DAILY 02/26/24 02/26/24 History [Probiotic] Levothyroxine Sodium [Synthroid] 137 mcg PO DAILY 02/26/24 02/26/24 History Losartan/Hydrochlorothiazide 1 tab PO DAILY 02/26/24 02/26/24 History [Hyzaar 100-25 Tablet] Montelukast [Singulair] 10 mg PO HS 02/26/24 02/26/24 History Pravastatin Sodium [Pravachol] 40 mg PO HS 02/26/24 02/26/24 History Sennosides/Docusate Sodium 1 tab PO HS 02/26/24 02/26/24 History [Senna-S 8.6-50 mg Tablet] Sodium Chloride [Saline Mist] 1 spr EA NOSTRIL DAILY PRN 02/26/24 02/26/24 History Tirzepatide [Mounjaro] 10 mg SQ ORTIZ 02/26/24 02/26/24 History amLODIPine [Norvasc] 10 mg PO DAILY 02/26/24 02/26/24 History guaiFENesin [Mucinex] 600 mg PO BID 02/26/24 02/26/24 History metFORMIN HCL 1,000 mg PO BID 02/26/24 02/26/24 History traZODone HCL [Desyrel] 50 mg PO HS 02/26/24 02/26/24 History Albuterol Inhaler [Ventolin Hfa 2 puff INHALATION RT-QID PRN 02/27/24 02/27/24 History Inhaler] Allergies Allergy/AdvReac Type Severity Reaction Status Date / Time Iodinated Contrast Media Allergy Rash/Hives Verified 02/26/24 20:25 Penicillins Allergy Rash/Hives Verified 02/26/24 20:25 Sulfa (Sulfonamide Allergy Rash/Hives Verified 02/26/24 20:25 Antibiotics) chocolate flavor AdvReac Abdominal Verified 02/27/24 11:21 Pain corn AdvReac Dyspnea Verified 02/27/24 11:21 Milk Containing Products AdvReac Abdominal Verified 02/27/24 11:21 (Dairy) Pain wheat AdvReac Abdominal Verified 02/27/24 11:21 Pain Physical Exam Vitals: Vital Signs Temp Pulse Pulse Resp BP BP Pulse Ox 02/27/24 07:00 98.4 F 79 17 137/62 95 02/27/24 00:55 98.3 F 74 16 164/63 93 L 02/26/24 22:02 98.6 F 82 16 187/66 94 L 02/26/24 21:27 98.1 F 79 13 174/70 95 02/26/24 19:31 81 16 169/67 96 02/26/24 18:35 87 18 165/81 97 02/26/24 17:32 98.2 F 85 18 184/82 99 Intake and Output 02/26/24 02/27/24 02/27/24 22:59 06:59 14:59 Other: # Voids 1 3 Weight 92.533 kg GENERAL DESCRIPTION: Elderly female lying in bed, no distress. No tachypnea or accessory muscle of respiration use. HEENT: Shows Pallor , no scleral icterus. Oral mucous membrane is dry. No pharyngeal erythema or thrush NECK: Trachea central, no thyromegaly. LUNGS: Unlabored breathing. Clear to auscultation anteriorly. No wheeze or crackle. HEART: S1, S2, regular rate and rhythm. No loud murmur ABDOMEN: Soft, no tenderness , guarding or rigidity, no organomegaly EXTREMITIES: Right big toe did have swelling redness mostly improves with some callus minimal drainage and has been cultured SKIN: No rash, no masses palpable. NEUROLOGICAL: The patient is awake, alert, oriented x3, mood and affect normal. Exam completed with the help of [employer] Results CBC & Chem 7: 02/28/24 06:39 02/28/24 06:39 Labs: Abnormal Lab Results - Last 24 Hours (Table) 02/26/24 02/26/24 02/26/24 Range/Units 18:34 18:34 23:17 WBC 13.3 H (3.8-10.6) k/uL Neutrophils # 9.9 H (1.3-7.7) k/uL Sodium 136 L (137-145) mmol/L Creatinine 0.46 L (0.52-1.04) mg/dL Glucose 118 H (74-99) mg/dL POC Glucose (mg/dL) 130 H (70-110) mg/dL 02/27/24 02/27/24 Range/Units 05:32 05:50 WBC (3.8-10.6) k/uL Neutrophils # (1.3-7.7) k/uL Sodium (137-145) mmol/L Creatinine (0.52-1.04) mg/dL Glucose (74-99) mg/dL POC Glucose (mg/dL) 64 L 146 H (70-110) mg/dL Assessment and Plan (1) Diabetic foot infection Current Visit: Yes Status: Acute Code(s): E11.628 - TYPE 2 DIABETES MELLITUS WITH OTHER SKIN COMPLICATIONS; L08.9 - LOCAL INFECTION OF THE SKIN AND SUBCUTANEOUS TISSUE, UNSP SNOMED Code(s): 961336987 (2) Cellulitis of right foot Current Visit: Yes Status: Acute Code(s): L03.115 - CELLULITIS OF RIGHT LOWER LIMB SNOMED Code(s): 16702665376888316 (3) Allergy to multiple antibiotics Current Visit: Yes Status: Acute Code(s): Z88.1 - ALLERGY STATUS TO OTHER ANTIBIOTIC AGENTS SNOMED Code(s): 002088438 Plan: 1patient presented to hospital with right big toe swelling redness and some discoloration symptom has been going on for about 2 to 3 weeks did have some drainage failing outpatient oral clindamycin therapy 2patient with multiple antibiotic ALLERGIES that would limit the number of antibiotic safe to use 3local culture has been recommended to guide further antibiotic therapy and check inflammatory markers 4vancomycin pharmacy to dose target trough of 15 while watching kidney function and Vanco trough closely We will follow on clinical condition and cultures to further adjust medication if needed Thank you for this consultation we will follow the patient along with you Dictation was produced using [employer] dictation software. please excuse any grammatical, word or spelling errors. Time with Patient: Greater than 30
== END 2024-02-29 15:35 | disposition home or self-care (01) | DRG 639 ==
LOC: EC 17:23 → 6NMEDSUR 20:27 → OBSVTOIN 20:28 → 6NMEDSUR 21:42
PROVIDERS: ADMIT Hospitalist; ATTEND Hospitalist
DX: E11.69 Type 2 diabetes mellitus with other specified complication (principal); L03.031 Cellulitis of right toe; E66.9 Obesity, unspecified; I10 Essential (primary) hypertension; I25.10 Atherosclerotic heart disease of native coronary artery without angina pectoris; Z79.4 Long term (current) use of insulin; Z79.84 Long term (current) use of oral hypoglycemic drugs; Z79.890 Hormone replacement therapy; Z79.899 Other long term (current) drug therapy; Z88.0 Allergy status to penicillin; Z91.041 Radiographic dye allergy status; Z68.31 Body mass index [BMI] 31.0-31.9, adult; Z88.2 Allergy status to sulfonamides
CPT/HCPCS: 36415; 80048; 80053; 80202; 81003; 82565; 83036; 85025; 86140; 87040; 87070; 87075; 87205; 96374; 99284

== ENCOUNTER → 2024-04-13 | Outpatient (CLI) | payer MEDICARE ==
--- NOTE | 2024-04-14 09:00 | US ---
EXAMINATION TYPE: US venous doppler duplex LE RT DATE OF EXAM: 04/13/2024 2:30 PM COMPARISON: NONE CLINICAL INDICATION: Female, 68 years old with history of L97.512 NON-PRESSURE CHRONIC ULCER OF OTHER PART O; rt toe non-healing ulcer SIDE PERFORMED: Right TECHNIQUE: The lower extremity deep venous system is examined utilizing real time linear array sonog gloria with graded compression, doppler sonography and color-flow sonography. VESSELS IMAGED: Common Femoral Vein Deep Femoral Vein Greater Saphenous Vein * Femoral Vein Popliteal Vein Small Saphenous Vein * Proximal Calf Veins (* superficial vessels) The deep venous system of the right lower extremity from the common femoral vein to the proximal calf veins is patent and compressible with augmentable flow with normal waveforms. IMPRESSION: No evidence of right lower extremity DVT from the common femoral vein to the proximal calf veins
--- NOTE | 2024-04-14 09:16 | US ---
EXAMINATION TYPE: US arterial LE single level DATE OF EXAM: 04/13/2024 3:03 PM CLINICAL INDICATION: Female, 68 years old with history of L97.512 NON-PRESSURE CHRONIC ULCER OF OTHER PART O; rt toe non-healing ulcer History of: Smoker: 40 years ago Hypertension: on meds Diabetic: type 2 Hyperlipidemia: on meds TIA/CVA: no Previous Vascular Surgery: no CAD: no LA: no Vascular Ulcers: right toe Claudication: no Gangrene: no Doppler Waveforms: Right: Multiphasic, monophasic DP Left: Multiphasic Pulse Volume Recording: PVRs taken Right Brachial Pressure: deferred due to pump Left Brachial Pressure: 152 Ankle-Brachial Indices: Right: 1.25 Left: 1.15 (Vessel hardening > 1.4; Normal 0.9 - 1.4, Moderate 0.7 - 0.9, Severe 0.5-0.7) Toe Brachial Indices: Right: 1.59 Left: non-compressible IMPRESSION: 1. No significant peripheral artery disease based on ankle brachial indices and pressure volume recor dings. 2. Findings consistent with small vessel disease involving the feet with elevated pressures in the ri ght toe and noncompressible left toe vessels.
== END | disposition home or self-care (01) ==
LOC: RADUSWWP 13:37
PROVIDERS: ATTEND Thoracic Surgery (Cardiothoracic Vascular Surgery)
DX: E11.621 Type 2 diabetes mellitus with foot ulcer (principal); L97.512 Non-pressure chronic ulcer of other part of right foot with fat layer exposed; I10 Essential (primary) hypertension; E78.5 Hyperlipidemia, unspecified
CPT/HCPCS: 93922

== ENCOUNTER → 2024-06-02 | Outpatient (CLI) | payer MEDICARE ==
--- NOTE | 2024-06-02 15:31 | XR ---
EXAMINATION TYPE: XR foot complete RT DATE OF EXAM: 06/02/2024 CLINICAL HISTORY: pain TECHNIQUE: Frontal, lateral and oblique images of the right foot are obtained. COMPARISON: None. FINDINGS: There is no acute fracture/dislocation evident. The joint spaces appear moderately narrow ed first metatarsophalangeal joint with hallux valgus deformity seen. No radiographic evidence to sug gest osteomyelitis. If symptoms persist consider bone scan. The overlying soft tissue appears unremar kable. IMPRESSION: There is no acute fracture or dislocation. ICD 10 NO FRACTURE, INITIAL EVALUATION
== END | disposition home or self-care (01) ==
LOC: RADXRWHC 15:14
PROVIDERS: ATTEND Podiatrist
DX: M86.171 Other acute osteomyelitis, right ankle and foot (principal)

== ENCOUNTER 2024-12-06 12:12 | Inpatient (IN) | payer MEDICARE ==
[2024-12-06 12:23] LABS: Glucose,Whole Blood 185 mg/dL (70-110)
[2024-12-06] MEDS: SODIUM CHLORIDE 0.9% 1,000 ML IV STA (12:34)
[2024-12-06 12:41] LABS: Basophils % (A) 0 %; Eosinophils # (A) 0.1 k/uL (0-0.7); Eosinophils % (A) 1 %; HCT 37.7 % (34.0-46.0); HGB 13.7 gm/dL (11.4-16.0); Lymphocytes # (A) 1.8 k/uL (1.0-4.8); Lymphocytes % (A) 17 %; MCH 29.4 pg (25.0-35.0); MCHC 36.3 g/dL (31.0-37.0); MCV 80.8 fL (80.0-100.0); Mean Platelet Volume 7.7; Monocytes # (A) 0.6 k/uL (0-1.0); Monocytes % (A) 5 %; Neutrophils # (A) 8.4 k/uL (1.3-7.7); Neutrophils % (A) 76 %; Platelet Count 214 k/uL (150-450); RBC 4.67 m/uL (3.80-5.40); RDW 12.5 % (11.5-15.5)
[2024-12-06 12:54] LABS: ALT 11 U/L (4-34); AST 17 U/L (14-36); African American GFR (CKD) >90 (>60 ml/min/1.73 sqM); Albumin 4.3 g/dL (3.5-5.0); Alcohol <10 mg/dL; Alkaline Phosphatase 56 U/L (38-126); Anion Gap 12 mmol/L; Blood Urea Nitrogen 9 mg/dL (7-17); Calcium 8.9 mg/dL (8.4-10.2); Carbon Dioxide 29 mmol/L (22-30); Chloride 82 mmol/L (98-107); Glucose 181 mg/dL (74-99); Magnesium 1.1 mg/dL (1.6-2.3); Non-African American GFR(CKD) >90 (>60 ml/min/1.73 sqM); Potassium 3.3 mmol/L (3.5-5.1); Sodium 123 mmol/L (137-145); Total Bilirubin 0.8 mg/dL (0.2-1.3)
[2024-12-06 12:58] LABS: Prothrombin Time 11.1 sec (10.0-12.5)
[2024-12-06] MEDS: ONDANSETRON 4 MG/2 ML VIAL IVP STA (12:59)
[2024-12-06 13:05] LABS: Partial Thromboplastin Time 19.7 sec (22.0-30.0)
[2024-12-06 13:11] LABS: Lactic Acid, Venous 1.4 mmol/L (0.7-2.0)
[2024-12-06 13:17] LABS: Influenza A Not Detected (Not Detectd); Influenza B Not Detected (Not Detectd); RSV Not Detected (Not Detectd)
--- NOTE | 2024-12-06 13:19 | CT ---
EXAMINATION TYPE: CT brain cspine wo con CT DLP: 1300.9 mGycm, Automated exposure control for dose reduction was used. DATE OF EXAM: 12/06/2024 1:09 PM COMPARISON: None.. CLINICAL INDICATION:Female, 69 years old with history of syncope; Fall, denies hitting head/head pain . No thinners TECHNIQUE: Brain: Multiple axial CT images of the brain were obtained without IV contrast. Cspine: Axial CT images from the skull base to the inferior aspect of T2 we obtained without intraven ous contrast. Coronal and sagittal reformatted images were also reviewed. FINDINGS: Brain: Extra-axial spaces: No abnormal extra-axial fluid collections. Ventricular system: Within normal limits Cerebral parenchyma: No acute intraparenchymal hemorrhage or mass effect. The conklin-white junction is well differentiated. Scattered hypoattenuating areas are seen within the periventricular white matte r. Cerebellum: Unremarkable. Mass effect: No evidence of midline shift. Intracranial vasculature: Atherosclerotic calcifications of the intracranial vessels. Soft tissues: Normal. Calvarium/osseous structures: No depressed skull fracture. Paranasal sinuses and mastoid air cells: Mastoid air cells are clear. Minimal mucosal thickening in i nferior left maxillary sinus. Remaining paranasal sinuses are clear. Visualized orbits: Bilateral aphakia Cervical spine: Fracture: None. Osseous structures: Multilevel degenerative disc disease changes with endplate spurring and disc oste ophyte complex's. Vertebral alignment: Within normal limits. Spinal canal/Neural Foramina: Disc osteophyte complexes at C4-C5 and C5-C6 with at least mild spinal canal stenosis. Facet joint uncovertebral joint arthropathy scattered throughout the cervical spine w ith varying degrees of neural foraminal stenosis. Neck soft tissues: Prevertebral soft tissues are within normal limits. Other: The airway is patent. The lung apices are clear. Bilateral carotid bulb calcifications. Promin ent sized thyroid gland. IMPRESSION: 1. No acute intracranial process. 2. Nonspecific white matter changes, likely secondary to chronic small vessel ischemic disease. 3. No evidence of cervical spine fracture. 4. Mild multilevel degenerative disc disease. [facility], , 12/06/2024 1:17 PM
--- NOTE | 2024-12-06 13:28 | ED ---
General Adult HPI - General Chief complaint: Altered Mental Status Stated complaint: AMS, fall Time Seen by Provider: 12/06/24 13:22 Source: patient, EMS, RN notes reviewed, old records reviewed Mode of arrival: EMS - History of Present Illness Initial comments: Patient is a 69-year-old female presents emergency department for fall with what sounds like conversational confusion after the fall. Unknown if the patient passed out but according to through EMS, she did. She then had an episode where she states she fell asleep her stated that she passed out again which is when EMS was called. Patient is currently acting appropriately. ANO x 4. Does have some confusion regarding the fall earlier. She is able to tell me she was in the bathroom and felt lightheaded. Unknown if she for sure passed out or not. She has a history of diabetes, hypertension. States she did not take her medications this morning. States she has not been feeling well and has been getting treatment for a sinus infection for a few days. Denies any fevers or sick contacts. Denies any chest pain or obvious injuries. Denies headache, back pain. Was amatory afterwards. Presents for further evaluation. She denies vertiginous symptoms. - Related Data Home Medications Medication Instructions Recorded Confirmed Insulin Glargine,Hum.rec.anlog 12 units SQ HS 02/26/24 12/06/24 [Lantus Solostar Pen] Levothyroxine Sodium [Synthroid] 137 mcg PO DAILY 02/26/24 12/06/24 Losartan/Hydrochlorothiazide 1 tab PO DAILY 02/26/24 12/06/24 [Hyzaar 100-25 Tablet] Montelukast [Singulair] 10 mg PO HS 02/26/24 12/06/24 Pravastatin Sodium [Pravachol] 40 mg PO HS 02/26/24 12/06/24 amLODIPine [Norvasc] 10 mg PO DAILY 02/26/24 12/06/24 metFORMIN HCL 1,000 mg PO BID 02/26/24 12/06/24 traZODone HCL [Desyrel] 50 mg PO HS 02/26/24 12/06/24 Albuterol Inhaler [Ventolin Hfa 2 puff INHALATION RT-QID PRN 02/27/24 12/06/24 Inhaler] Amoxic-Pot Clav 875-125Mg 1 tab PO BID 12/06/24 12/06/24 [Augmentin 875-125] Ipratropium Nebulized [Atrovent 0.5 mg INHALATION RT-QID PRN 12/06/24 12/06/24 Nebulized 0.2 MG/ML] Ipratropium/Albuter 20-100Mcg 1 puff INHALATION RT-QID 12/06/24 12/06/24 [Combivent Respimat 20-100Mcg Inhaler] Ondansetron Odt [Zofran Odt] 4 mg PO Q8HR PRN 12/06/24 12/06/24 Tirzepatide [Mounjaro] 12.5 mg SQ SA 12/06/24 12/06/24 methylPREDNISolone [Medrol Dose See Taper PO DIRECTED 12/06/24 12/06/24 Pack] Allergies Allergy/AdvReac Type Severity Reaction Status Date / Time Iodinated Contrast Media Allergy Rash/Hives Verified 12/06/24 12:28 Penicillins Allergy Rash/Hives Verified 12/06/24 13:52 Sulfa (Sulfonamide Allergy Rash/Hives Verified 12/06/24 13:52 Antibiotics) chocolate flavor AdvReac Abdominal Verified 12/06/24 12:28 Pain corn AdvReac Dyspnea Verified 12/06/24 12:28 Milk Containing Products AdvReac Abdominal Verified 12/06/24 12:28 (Dairy) Pain wheat AdvReac Abdominal Verified 12/06/24 12:28 Pain Review of Systems ROS Statement: Those systems with pertinent positive or pertinent negative responses have been documented in the HPI. Review of Systems: CONST: Denies fever EYES: Denies blurry vision ENT: Denies nasal congestion C/V: Denies Chest pain RESP: Denies shortness of breath GI: Denies abdominal pain : Denies dysuria SKIN: Denies rash. MSK: Denies joint pain. NEURO: Denies headache ROS Other: All systems not noted in ROS Statement are negative. Past Medical History Past Medical History: Coronary Artery Disease (CAD), Diabetes Mellitus, Hypertension Additional Past Medical History / Comment(s): Heart Murmur. History of Any Multi-Drug Resistant Organisms: None Reported Past Surgical History: Section Past Psychological History: No Psychological Hx Reported Smoking Status: Former smoker Past Alcohol Use History: None Reported Past Drug Use History: None Reported General Exam - General Exam Comments Initial Comments: General: Appears in no acute distress. HEAD: Normal with no signs of head trauma. Negative Culver sign. Negative raccoon eyes. EYES: PERRLA, EOMI, conjunctiva normal, no discharge. Pupils are 2 to 3 mm and equal bilaterally. ENT: Hearing grossly intact, normal oropharynx. RESPIRATORY: Clear breath sounds bilaterally. No wheezes, rales, or rhonchi. C/V: Regular rate and rhythm. S1 and S2 auscultated, no edema, peripheral pulses 2+ and intact throughout ABD: Abd is soft, nontender, nondistended EXT: Normal range of motion, no obvious deformity. Pelvis is stable. No midline cervical, thoracic, lumbar spine tenderness to palpation. SKIN: No rashes or lesions observed on exposed skin. NEURO: Alert and oriented x 4. GCS of 15. NIH is 0. Course Vital Signs 12/06/24 12/06/24 12/06/24 12:15 12:28 13:08 Temperature 98.0 F Pulse Rate 86 84 81 Pulse Rate [ Standing] Pulse Rate [ Supine] Respiratory 22 18 20 Rate Blood Pressure 204/89 181/85 182/60 Blood Pressure [Standing] Blood Pressure [Supine] O2 Sat by Pulse 96 97 95 Oximetry 12/06/24 12/06/24 12/06/24 14:41 15:26 15:29 Temperature Pulse Rate 81 Pulse Rate [ 87 Standing] Pulse Rate [ 79 Supine] Respiratory Rate Blood Pressure Blood Pressure 124/63 [Standing] Blood Pressure 176/76 [Supine] O2 Sat by Pulse 91 L Oximetry 12/06/24 12/06/24 12/06/24 15:35 16:16 17:00 Temperature 98.1 F Pulse Rate 78 80 82 Pulse Rate [ Standing] Pulse Rate [ Supine] Respiratory 18 16 Rate Blood Pressure 150/61 155/56 Blood Pressure [Standing] Blood Pressure [Supine] O2 Sat by Pulse 96 97 Oximetry Medical Decision Making - Medical Decision Making Was pt. sent in by a medical professional or institution ([facility], TRANSPLANT WORKER, urgent care, hospital, or snf...) When possible be specific @ -No Did you speak to anyone other than the patient for history (EMS, parent, family, police, friend...)? What history was obtained from this source @ -No Did you review nursing and triage notes (agree or disagree)? Why? @ -I reviewed and agree with nursing and triage notes Were old charts reviewed (outside hosp., previous admission, EMS record, old EKG, old radiological studies, urgent care reports/EKG's, snf records)? Report findings @ -No old charts were reviewed Differential Diagnosis (chest pain, altered mental status, abdominal pain women, abdominal pain men, vaginal bleeding, weakness, fever, dyspnea, syncope, headache, dizziness, GI bleed, back pain, seizure, CVA, palpatations, mental health, musculoskeletal)? @ -Differential Syncope: Valvular disease, hypertrophic cardiomyopathy, pulmonary embolism, tamponade, tachycardia, bradycardia, ID, hypovolemia, hemorrhage, dissection, anemia, intracranial hemorrhage, seizure, hypoglycemia, carbon monoxide poisoning, this is not meant to be an all-inclusive list. EKG interpreted by me (3pts min.). @ -As above X-rays interpreted by me (1pt min.). @ -Chest x-ray reveals no obvious acute cardiopulmonary process. Pelvis x-ray reveals no obvious acute injury or process. CT interpreted by me (1pt min.). @ -CT brain and C-spine reveals no evidence of acute traumatic injury. Degener ative changes present. U/S interpreted by me (1pt. min.). @ -None done What testing was considered but not performed or refused? (CT, X-rays, U/S, labs)? Why? @ -None What meds were considered but not given or refused? Why? @ -None Did you discuss the management of the patient with other professionals (professionals i.e. , PA, TRANSPLANT WORKER, lab, RT, psych nurse, social work manager, systems tester, teacher, border patrol officer, manager rn case)? Give summary @ -No Was smoking cessation discussed for >3mins.? @ -No Was critical care preformed (if so, how long)? @ -No Were there social determinants of health that impacted care today? How? (Homelessness, low income, unemployed, alcoholism, drug addiction, transportat ion, low edu. Level, literacy, decrease access to med. care, fpc, rehab)? @ -No Was there de-escalation of care discussed even if they declined (Discuss DNR or withdrawal of care, Hospice)? DNR status @ -No What co-morbidities impacted this encounter? (DM, HTN, Smoking, COPD, CAD, Cancer, CVA, ARF, Chemo, Hep., AIDS, mental health diagnosis, sleep apnea, morbid obesity)? @ -None Was patient admitted / discharged? Hospital course, mention meds given and route, prescriptions, significant lab abnormalities, going to OR and other pertinent info. @ -Patient presents emergency department for what sounds like a fall versus syncopal episode at home. She currently has no complaints. Is not on blood thinners. Is acting normally at this time. Does not meet criteria for trauma activation. NIH of 0. We will obtain generalized workup. CT brain, C-spine as well as chest and pelvis x-ray will be obtained. Vital signs are within acceptable limits. She will be given IV fluids. She will also be given Zofran. Patient was in agreement this plan. EKG shows no signs of acute ischemia. CT imaging the brain and C-spine negative for any obvious acute traumatic injuries.X-ray is unremarkable. Laboratory studies remarkable for hypomagnesemia, hypokalemia, hyponatremia and hypochloremia. At this time, discussed results with the patient. Patient states she had just started when the symptoms started. Do suspect she is having some orthostatic syncopal situations. Orthostatics were positive his pressure did drop from 148 systolic to 122 systolic with standing. Patient will be admitted for IV fluid hydration and electrolyte correction. She was in agreement this plan. I discussed the case with Dr. Ward who accepted the admission. Undiagnosed new problem with uncertain prognosis? @ -No Drug Therapy requiring intensive monitoring for toxicity (Heparin, Nitro, Insulin, Cardizem)? @ -No Were any procedures done? @ -No Diagnosis/symptom? @ -Weakness, hypomagnesemia, hypokalemia, hyponatremia, orthostatic syncope Acute, or Chronic, or Acute on Chronic? @ -Acute Uncomplicated (without systemic symptoms) or Complicated (systemic symptoms)? @ -Complicated Side effects of treatment? @ -None Exacerbation, Progression, or Severe Exacerbation] @ -No Poses a threat to life or bodily function? @ -Yes - Lab Data Result diagrams: 12/06/24 12:29 12/06/24 12:29 Lab Results 12/06/24 12/06/24 12/06/24 Range/Units 12:22 12: 12:29 WBC 11.0 H (3.8-10.6) k/uL RBC 4.67 (3.80-5.40) m/uL Hgb 13.7 (11.4-16.0) gm/dL Hct 37.7 (34.0-46.0) % MCV 80.8 (80.0-100.0) fL MCH 29.4 (25.0-35.0) pg MCHC 36.3 (31.0-37.0) g/dL RDW 12.5 (11.5-15.5) % Plt Count 214 (150-450) k/uL MPV 7.7 Neutrophils % 76 % Lymphocytes % 17 % Monocytes % 5 % Eosinophils % 1 % Basophils % 0 % Neutrophils # 8.4 H (1.3-7.7) k/uL Lymphocytes # 1.8 (1.0-4.8) k/uL Monocytes # 0.6 (0-1.0) k/uL Eosinophils # 0.1 (0-0.7) k/uL Basophils # 0.0 (0-0.2) k/uL PT 11.1 (10.0-12.5) sec INR 1.0 (<1.2) APTT 19.7 L (22.0-30.0) sec Sodium (137-145) mmol/L Potassium (3.5-5.1) mmol/L Chloride (98-107) mmol/L Carbon Dioxide (22-30) mmol/L Anion Gap mmol/L BUN (7-17) mg/dL Creatinine (0.52-1.04) mg/dL Est GFR (CKD-EPI)AfAm (>60 ml/min/1.73 sqM) Est GFR (CKD-EPI)NonAf (>60 ml/min/1.73 sqM) Glucose (74-99) mg/dL POC Glucose (mg/dL) 185 H (70-110) mg/dL POC Glu [employer] Worker ID Arturo Kumar Plasma Lactic Acid Lonnie (0.7-2.0) mmol/L Calcium (8.4-10.2) mg/dL Magnesium (1.6-2.3) mg/dL Total Bilirubin (0.2-1.3) mg/dL AST (14-36) U/L ALT (4-34) U/L Alkaline Phosphatase (38-126) U/L Ammonia (<30) umol/L Total Protein (6.3-8.2) g/dL Albumin (3.5-5.0) g/dL Serum Alcohol mg/dL Influenza Type A (PCR) (Not Detectd) Influenza Type B (PCR) (Not Detectd) RSV (PCR) (Not Detectd) SARS-CoV-2 (PCR) (Not Detectd) 12/06/24 12/06/24 12/06/24 Range/Units 12: 12: 12:30 WBC (3.8-10.6) k/uL RBC (3.80-5.40) m/uL Hgb (11.4-16.0) gm/dL Hct (34.0-46.0) % MCV (80.0-100.0) fL MCH (25.0-35.0) pg MCHC (31.0-37.0) g/dL RDW (11.5-15.5) % Plt Count (150-450) k/uL MPV Neutrophils % % Lymphocytes % % Monocytes % % Eosinophils % % Basophils % % Neutrophils # (1.3-7.7) k/uL Lymphocytes # (1.0-4.8) k/uL Monocytes # (0-1.0) k/uL Eosinophils # (0-0.7) k/uL Basophils # (0-0.2) k/uL PT (10.0-12.5) sec INR (<1.2) APTT (22.0-30.0) sec Sodium 123 L (137-145) mmol/L Potassium 3.3 L (3.5-5.1) mmol/L Chloride 82 L (98-107) mmol/L Carbon Dioxide 29 (22-30) mmol/L Anion Gap 12 mmol/L BUN 9 (7-17) mg/dL Creatinine 0.52 (0.52-1.04) mg/dL Est GFR (CKD-EPI)AfAm >90 (>60 ml/min/1.73 sqM) Est GFR (CKD-EPI)NonAf >90 (>60 ml/min/1.73 sqM) Glucose 181 H (74-99) mg/dL POC Glucose (mg/dL) (70-110) mg/dL POC Glu [employer] Worker ID Plasma Lactic Acid Lonnie 1.4 (0.7-2.0) mmol/L Calcium 8.9 (8.4-10.2) mg/dL Magnesium 1.1 L (1.6-2.3) mg/dL Total Bilirubin 0.8 (0.2-1.3) mg/dL AST 17 (14-36) U/L ALT 11 (4-34) U/L Alkaline Phosphatase 56 (38-126) U/L Ammonia <9 (<30) umol/L Total Protein 7.0 (6.3-8.2) g/dL Albumin 4.3 (3.5-5.0) g/dL Serum Alcohol <10 mg/dL Influenza Type A (PCR) Not Detected (Not Detectd) Influenza Type B (PCR) Not Detected (Not Detectd) RSV (PCR) Not Detected (Not Detectd) SARS-CoV-2 (PCR) Not Detected (Not Detectd) - EKG Data -: EKG Interpreted by Me EKG Comments: 12-lead Electrocardiogram Interpretation Note EKG was reviewed and interpreted by myself. 12-lead ECG performed at 1217 is interpreted by me as revealing normal sinus rhythm at a rate of 180 beats per minute. [place] is normal. MD interval is 180 ms, QRS duration is 93 ms, QTc is 389 ms.. There were no ST or T wave abnormalities to suggest myocardial ischemia or injury. R wave progression across the precordium was satisfactory. By my interpretation this EKG is non-diagnostic for acute ischemia. Disposition Clinical Impression: Weakness, Hypomagnesemia, Hypokalemia, Hyponatremia, Orthostatic syncope Disposition: ADMITTED IP TO THIS HOSP Condition: Stable Time of Disposition: 14:00
--- NOTE | 2024-12-06 13:30 | XR ---
EXAMINATION TYPE: XR chest 1V portable, XR pelvis AP view DATE OF EXAM: 12/06/2024 1:12 PM COMPARISON: None CLINICAL INDICATION: Female, 69 years old with history of syncope, pain, FINDINGS: Chest: Heart borderline in size. Mild interstitial prominence as a chronic appearance. Aorta and pulmonary v asculature within normal limits. No consolidation or pleural effusion. Pelvis: Degenerative disc disease L4-L5. Limited by large body habitus. There is mild degenerative spurring a t the left hip. Pelvic phleboliths. No acute fracture, subluxation, dislocation is seen. IMPRESSION: 1. Chest: Borderline heart size. No acute process seen. 2. Pelvis: Mild left hip OA. Degenerative disc disease L4-L5. No acute osseous abnormality seen. [facility], Workstation: [email or web address], 12/06/2024 1:28 PM
[2024-12-06] MEDS ORDERED: ACETAMINOPHEN TAB 325 MG TAB PO PRN (13:56)
[2024-12-06] MEDS ORDERED: ONDANSETRON 4 MG/2 ML VIAL IVP PRN (13:56)
[2024-12-06] MEDS ORDERED: NALOXONE 0.4 MG/ML 1 ML VIAL IV PRN (13:56)
[2024-12-06] MEDS ORDERED: ALBUTEROL NEBULIZED 2.5 MG/3 ML INHALATION PRN (13:57)
[2024-12-06] MEDS ORDERED: IPRATROPIUM-ALBUTEROL 3 ML NEB INHALATION PRN (13:57)
[2024-12-06] MEDS: POTASSIUM CHLORIDE ER 20 MEQ TAB.ER PO STA (14:28)
[2024-12-06] MEDS: SODIUM CHLORIDE 0.9% 1,000 ML IV SCH ×2 (14:29→21:47)
[2024-12-06] MEDS: MAGNESIUM SULFATE-D5W PMX 1 GM in DEXTROSE/WATER 1 100ML.BAG IVPB ONE (14:33)
[2024-12-06] MEDS: IPRATROPIUM-ALBUTEROL 3 ML NEB INHALATION SCH (15:25)
[2024-12-06] MEDS: HEPARIN SODIUM,PORCINE 5,000 UNIT/ML 1 ML VIAL SQ SCH (16:33)
[2024-12-06 17:06] LABS: Appearance,Urine Clear (Clear); Bilirubin,Urine Negative (Negative); Blood,Urine Negative (Negative); Color,Urine Colorless; Glucose,Urine (UA) Negative (Negative); Ketones,Urine 1+ (Negative); Leukocyte Esterase,Urine Negative (Negative); Nitrite,Urine Negative (Negative); PH, Urine 6.5 (5.0-8.0); Protein,Urine Negative (Negative); Specific Gravity,Urine 1.005 (1.001-1.035); Urobilinogen,Urine <2.0 mg/dL (<2.0)
[2024-12-06 17:24] LABS: Glucose,Whole Blood 188 mg/dL (70-110)
[2024-12-06 20:51] LABS: Glucose,Whole Blood 240 mg/dL (70-110)
--- NOTE | 2024-12-06 21:20 | P.HPIM ---
History of Present Illness H&P Date: 12/06/24 Chief Complaint: Passed out This is a pleasant 69-year-old patient, follows with Dr. Cohen. Chronic stable medical conditions include diabetes hypertension hypothyroid. Patient received antibiotics for right big toe infection. Recently patient been on Augmentin for right ear infection including antibiotics and steroids. Patient eating fair but drinking lots of fluids. No fever or chills. This morning she felt tired and sleepy went to the bathroom. When she tried to get out of the toilet seat she fell down. Not sure if she passed out. No chest pain palpitations. had called 911. Review of systems: GEN.: Decreased appetite EYES: None HEENT: None NECK: None RESPIRATORY: None CARDIOVASCULAR: None GASTROINTESTINAL: None GENITOURINARY: None MUSCULOSKELETAL: None LYMPHATICS: None HEMATOLOGICAL: None PSYCHIATRY: None NEUROLOGICAL: No focal symptoms Social history: Former smoker. . No alcohol. Physical examination: VITAL SIGNS: 98, 86, 22, 124 x 63, 95% room air upon presentation GENERAL: BMI 32.2, reclining bed awake comfortable. EYES: Pupils equal. Conjunctiva karen l. HEENT: External appearance of nose and ears normal, oral cavity grossly normal. Decreased hearing NECK: JVD not raised; masses not palpable. HEART: First and second heart sounds are normal; no edema. LUNGS: Respiratory rate normal; clear to auscultation. ABDOMEN: Soft, nontender, liver spleen not palpable, no masses palpable. PSYCH: Alert and oriented x3; mood and affect karen l. MUSCULOSKELETAL:No Clubbing/cyanosis;muscles-grossly intact NEUROLOGICAL: Cranial nerves grossly intact; no facial asymmetry, power and sensation grossly intact. LYMPHATICS: No lymph nodes palpable in the axilla and neck INVESTIGATIONS, reviewed in the clinical context: December 06, 2024: White count 11 hemoglobin 13.7 platelets 214 sodium 123 potassium 3.3 BUN 9 creatinine 0.52 chloride 82 UA: Ketones 1+ Influenza type A, type B, RSV, COVID-19: Not detected EKG tracing personally reviewed by me-normal sinus rhythm. Nonspecific T wave changes. CT scan head and neck: Unremarkable Pelvic x-ray: Unremarkable Chest x-ray film unremarkable Assessment plan: -Episode of syncope. In the setting of hyponatremia. Likely causing vasovagal syncope. -Hypovolemic hyponatremia. Patient's had decreased appetite between drinking excessive fluid. Normal saline. Fluid restriction to free fluids. May take chicken broth thick liquids. 1500 cc a day. -Diabetes mellitus type 2 chronically on insulin Diabetic diet. Follow Accu-Cheks metformin. Insulin. Mounjaro -Hypothyroid Synthroid 137 mcg a day -Essential hypertension Patient takes Hyzaar 100/25 at home. Hold hydrochlorothiazide -Decreased hearing -Essential hypertension Amlodipine 10 mg a day -Recent right ear infection for which patient is on Augmentin. Continue the same. -Full code Past Medical History Past Medical History: Coronary Artery Disease (CAD), Diabetes Mellitus, Hypertension Additional Past Medical History / Comment(s): Heart Murmur. History of Any Multi-Drug Resistant Organisms: None Reported Past Surgical History: Section Past Anesthesia/Blood Transfusion Reactions: No Reported Reaction Past Psychological History: No Psychological Hx Reported Smoking Status: Former smoker Past Alcohol Use History: None Reported Past Drug Use History: None Reported Medications and Allergies Home Medications Medication Instructions Recorded Confirmed Type Insulin Glargine,Hum.rec.anlog 12 units SQ HS 02/26/24 12/06/24 History [Lantus Solostar Pen] Levothyroxine Sodium [Synthroid] 137 mcg PO DAILY 02/26/24 12/06/24 History Losartan/Hydrochlorothiazide 1 tab PO DAILY 02/26/24 12/06/24 History [Hyzaar 100-25 Tablet] Montelukast [Singulair] 10 mg PO HS 02/26/24 12/06/24 History Pravastatin Sodium [Pravachol] 40 mg PO HS 02/26/24 12/06/24 History amLODIPine [Norvasc] 10 mg PO DAILY 02/26/24 12/06/24 History metFORMIN HCL 1,000 mg PO BID 02/26/24 12/06/24 History traZODone HCL [Desyrel] 50 mg PO HS 02/26/24 12/06/24 History Albuterol Inhaler [Ventolin Hfa 2 puff INHALATION RT-QID PRN 02/27/24 12/06/24 History Inhaler] Amoxic-Pot Clav 875-125Mg 1 tab PO BID 12/06/24 12/06/24 History [Augmentin 875-125] Ipratropium Nebulized [Atrovent 0.5 mg INHALATION RT-QID PRN 12/06/24 12/06/24 History Nebulized 0.2 MG/ML] Ipratropium/Albuter 20-100Mcg 1 puff INHALATION RT-QID 12/06/24 12/06/24 History [Combivent Respimat 20-100Mcg Inhaler] Ondansetron Odt [Zofran Odt] 4 mg PO Q8HR PRN 12/06/24 12/06/24 History Tirzepatide [Mounjaro] 12.5 mg SQ SA 12/06/24 12/06/24 History methylPREDNISolone [Medrol Dose See Taper PO DIRECTED 12/06/24 12/06/24 History Pack] Allergies Allergy/AdvReac Type Severity Reaction Status Date / Time Iodinated Contrast Media Allergy Rash/Hives Verified 12/06/24 12:28 Penicillins Allergy Rash/Hives Verified 12/06/24 13:52 Sulfa (Sulfonamide Allergy Rash/Hives Verified 12/06/24 13:52 Antibiotics) chocolate flavor AdvReac Abdominal Verified 12/06/24 12:28 Pain corn AdvReac Dyspnea Verified 12/06/24 12:28 Milk Containing Products AdvReac Abdominal Verified 12/06/24 12:28 (Dairy) Pain wheat AdvReac Abdominal Verified 12/06/24 12:28 Pain Physical Exam Vitals: Vital Signs Temp Pulse Pulse Pulse Resp BP BP 12/06/24 20:58 78 18 12/06/24 20:52 72 18 12/06/24 19:27 98.4 F 87 18 12/06/24 18:00 94 86 122/67 12/06/24 17:00 98.1 F 82 16 155/56 12/06/24 16:16 80 18 150/61 12/06/24 15:35 78 12/06/24 15:29 12/06/24 15:26 81 12/06/24 14:41 87 79 124/63 12/06/24 13:08 81 20 182/60 12/06/24 12:28 84 18 181/85 12/06/24 12:15 98.0 F 86 22 204/89 BP Pulse Ox 12/06/24 20:58 12/06/24 20:52 12/06/24 19:27 148/69 96 12/06/24 18:00 95 12/06/24 17:00 97 12/06/24 16:16 96 12/06/24 15:35 12/06/24 15:29 91 L 12/06/24 15:26 12/06/24 14:41 176/76 12/06/24 13:08 95 12/06/24 12:28 97 12/06/24 12:15 96 Intake and Output 12/06/24 12/06/24 12/06/24 06:59 14:59 22:59 Other: Weight 82.554 kg 82.554 kg Results CBC & Chem 7: 12/06/24 12:29 12/06/24 12:29 Labs: Abnormal Lab Results - Last 24 Hours (Table) 12/06/24 12/06/24 12/06/24 Range/Units 12:22 12:29 12:29 WBC 11.0 H (3.8-10.6) k/uL Neutrophils # 8.4 H (1.3-7.7) k/uL APTT 19.7 L (22.0-30.0) sec Sodium (137-145) mmol/L Potassium (3.5-5.1) mmol/L Chloride (98-107) mmol/L Glucose (74-99) mg/dL POC Glucose (mg/dL) 185 H (70-110) mg/dL Magnesium (1.6-2.3) mg/dL Urine Ketones (Negative) 12/06/24 12/06/24 12/06/24 Range/Units 12:29 16:15 17:22 WBC (3.8-10.6) k/uL Neutrophils # (1.3-7.7) k/uL APTT (22.0-30.0) sec Sodium 123 L (137-145) mmol/L Potassium 3.3 L (3.5-5.1) mmol/L Chloride 82 L (98-107) mmol/L Glucose 181 H (74-99) mg/dL POC Glucose (mg/dL) 188 H (70-110) mg/dL Magnesium 1.1 L (1.6-2.3) mg/dL Urine Ketones 1+ H (Negative) 12/06/24 Range/Units 20:50 WBC (3.8-10.6) k/uL Neutrophils # (1.3-7.7) k/uL APTT (22.0-30.0) sec Sodium (137-145) mmol/L Potassium (3.5-5.1) mmol/L Chloride (98-107) mmol/L Glucose (74-99) mg/dL POC Glucose (mg/dL) 240 H (70-110) mg/dL Magnesium (1.6-2.3) mg/dL Urine Ketones (Negative) Thrombosis Risk Factor Assmnt - Choose All That Apply Any of the Below Risk Factors Present?: Yes Each Factor Represents 1 point: Obesity (BMI >25) Other Risk Factors: Yes Each Risk Factor Represents 2 Points: Age 61-74 years Other congenital or acquired thrombophilia - If yes, enter type in comment: No Thrombosis Risk Factor Assessment Total Risk Factor Score: 3 Thrombosis Risk Factor Assessment Level: Moderate Risk
[2024-12-06] MEDS: PRAVASTATIN SODIUM 40 MG TAB PO SCH (21:46)
[2024-12-06] MEDS: ENOXAPARIN 40 MG/0.4 ML SYRINGE SQ SCH (21:46)
[2024-12-06] MEDS: AMOXIC-POT CLAV 875-125MG 1 EACH TAB PO SCH (21:46)
[2024-12-06] MEDS: MONTELUKAST 10 MG TAB PO SCH (21:47)
[2024-12-06] MEDS: traZODone HCL 50 MG TAB PO SCH (21:47)
[2024-12-06] MEDS: INSULIN DETEMIR (LEVEMIR) 100 UNIT/ML SYR SQ SCH (21:47)
[2024-12-06] MEDS: metFORMIN 500 MG TAB PO SCH (21:47)
[2024-12-07 02:53] LABS: Urine Alcohol Negative (Negative); Urine Barbiturate Negative (Negative); Urine Cocaine Negative (Negative); Urine Methadone Negative (Negative); Urine Opiates Negative (Negative); Urine Phencyclidine Negative (Negative)
[2024-12-07 06:19] LABS: Glucose,Whole Blood 125 mg/dL (70-110)
[2024-12-07 08:33] LABS: Basophils # (A) 0.04 X 10*3/uL (0.00-0.10); Basophils % (A) 0.5 %; Eosinophils # (A) 0.02 X 10*3/uL (0.04-0.35); Eosinophils % (A) 0.3 %; HGB 11.5 g/dL (12.0-15.0); Lymphocytes # (A) 2.52 X 10*3/uL (0.90-5.00); Lymphocytes % (A) 32.7 %; MCHC 34.8 g/dL (32.0-37.0); MCV 83.1 FL (80.0-97.0); Mean Platelet Volume 10.1 FL (9.5-12.2); Monocytes # (A) 0.66 X 10*3/uL (0.20-1.00); Monocytes % (A) 8.6 %; NRBC Per 100 WBC 0 X 10*3/uL (0.00-0.01); Neutrophils # (A) 4.44 X 10*3/uL (1.80-7.70); Neutrophils % (A) 57.6 %; Platelet Count 177 X 10*3/uL (140-440); RBC 3.97 X 10*6/uL (4.10-5.20); RDW 12.4 % (11.5-14.5)
[2024-12-07] MEDS ORDERED: LOSARTAN-HCTZ 50-12.5 MG 1 EACH TAB PO SCH (09:00)
[2024-12-07] MEDS ORDERED: LOSARTAN 50 MG TAB PO SCH (09:00)
[2024-12-07 09:05] LABS: ALT 9 U/L (8-44); AST 14 U/L (13-35); Albumin 3.7 g/dL (3.8-4.9); Albumin/Globulin Ratio 1.95 Ratio (1.60-3.17); Alkaline Phosphatase 47 U/L (41-126); Blood Urea Nitrogen 5.9 mg/dL (9.0-27.0); Calcium 8.6 mg/dL (8.7-10.3); Carbon Dioxide 26.1 mmol/L (21.6-31.8); Chloride 99 mmol/L (96-109); Globulin 1.9 g/dL (1.6-3.3); Glucose 120 mg/dL (70-110); Potassium 4.3 mmol/L (3.5-5.5); Sodium 136 mmol/L (135-145); Total Bilirubin 0.3 mg/dL (0.3-1.2); Total Protein 5.6 g/dL (6.2-8.2)
[2024-12-07] MEDS: amLODIPine 10 MG TAB PO SCH (09:41)
[2024-12-07] MEDS: LOSARTAN 50 MG TAB PO SCH (09:41)
[2024-12-07] MEDS: LEVOTHYROXINE 137 MCG TAB PO SCH (09:42)
[2024-12-07 13:17] VITALS: BP 149/89; PULSE 87; RESP 17; TEMP 98.1
--- NOTE | 2024-12-07 20:44 | P.DS ---
Providers Date of admission: 12/06/24 13:57 Expected date of discharge: 12/07/24 Attending physician: Dominick Ward Primary care physician: [facility] Course: Chief Complaint: Passed out This is a pleasant 69-year-old patient, follows with Dr. Cohen. Chronic stable medical conditions include diabetes hypertension hypothyroid. Patient received antibiotics for right big toe infection. Recently patient been on Augmentin for right ear infection including antibiotics and steroids. Patient eating fair but drinking lots of fluids. No fever or chills. This morning she felt tired and sleepy went to the bathroom. When she tried to get out of the toilet seat she fell down. Not sure if she passed out. No chest pain palpitations. had called 911. December 07: Patient sodium much better after fluid restriction and changes. Doing much better. at the bedside. Fluid discussed. Patient to complete a course of Augmentin as per outpatient.Questions answered Social history: Former smoker. . No alcohol. Physical examination: VITAL SIGNS: 98.1, 87, 17, 149 x 89, 95% room air GENERAL: BMI 32.2, comfortable. EYES: Pupils equal. Conjunctiva karen l. HEENT: External appearance of nose and ears normal, oral cavity grossly normal. Decreased hearing NECK: JVD not raised; masses not palpable. HEART: First and second heart sounds are normal; no edema. LUNGS: Respiratory rate normal; clear to auscultation. ABDOMEN: Soft, nontender, liver spleen not palpable, no masses palpable. PSYCH: Alert and oriented x3; mood and affect karen l. MUSCULOSKELETAL:No Clubbing/cyanosis;muscles-grossly intact INVESTIGATIONS, reviewed in the clinical context: December 07: White count 7.7 hemoglobin 9.5 platelets 177 sodium 136 potassium 4.3 creatinine 0.5 December 06, 2024: White count 11 hemoglobin 13.7 platelets 214 sodium 123 potassium 3.3 BUN 9 creatinine 0.52 chloride 82 UA: Ketones 1+ Influenza type A, type B, RSV, COVID-19: Not detected EKG tracing personally reviewed by me-normal sinus rhythm. Nonspecific T wave changes. CT scan head and neck: Unremarkable Pelvic x-ray: Unremarkable Chest x-ray film unremarkable Assessment plan: -Episode of syncope. In the setting of hyponatremia. Likely causing vasovagal syncope. -Hypovolemic hyponatremia. Patient's had decreased appetite between drinking excessive fluid.: Improved Normal saline. Fluid restriction to free fluids. May take chicken broth thick liquids. 1500 cc a day. -Diabetes mellitus type 2 chronically on insulin Diabetic diet. Follow Accu-Cheks metformin. Insulin. Mounjaro -Hypothyroid Synthroid 137 mcg a day -Essential hypertension Patient takes Hyzaar 100/25 at home. Hold hydrochlorothiazide -Decreased hearing -Essential hypertension Amlodipine 10 mg a day -Recent right ear infection for which patient is on Augmentin. Complete course -Full code Disposition: Home Past Medical History Past Medical History: Coronary Artery Disease (CAD), Diabetes Mellitus, Hypertension Additional Past Medical History / Comment(s): Heart Murmur. History of Any Multi-Drug Resistant Organisms: None Reported Past Surgical History: Section Past Anesthesia/Blood Transfusion Reactions: No Reported Reaction Past Psychological History: No Psychological Hx Reported Smoking Status: Former smoker Past Alcohol Use History: None Reported Past Drug Use History: None Reported Plan - Discharge Summary New Discharge Prescriptions: Continue Losartan/Hydrochlorothiazide [Hyzaar 100-25 Tablet] 1 tab PO DAILY Levothyroxine Sodium [Synthroid] 137 mcg PO DAILY Pravastatin Sodium [Pravachol] 40 mg PO HS Insulin Glargine,Hum.rec.anlog [Lantus Solostar Pen] 12 units SQ HS Montelukast [Singulair] 10 mg PO HS Tirzepatide [Mounjaro] 12.5 mg SQ SA metFORMIN HCL 1,000 mg PO BID amLODIPine [Norvasc] 10 mg PO DAILY traZODone HCL [Desyrel] 50 mg PO HS Albuterol Inhaler [Ventolin Hfa Inhaler] 2 puff INHALATION RT-QID PRN PRN Reason: Shortness Of Breath Ipratropium/Albuter 20-100Mcg [Combivent Respimat 20-100Mcg Inhaler] 1 puff INHALATION RT-QID Ondansetron Odt [Zofran ODT] 4 mg PO Q8HR PRN PRN Reason: Nausea And Vomiting Ipratropium Nebulized [Atrovent Nebulized 0.2 MG/ML] 0.5 mg INHALATION RT-QID PRN PRN Reason: Shortness Of Breath Amoxic-Pot Clav 875-125Mg [Augmentin 875-125] 1 tab PO BID Discontinued methylPREDNISolone [Medrol Dose Pack] See Taper PO DIRECTED Discharge Medication List Insulin Glargine,Hum.rec.anlog [Lantus Solostar Pen] 12 units SQ HS 02/26/24 [History] Levothyroxine Sodium [Synthroid] 137 mcg PO DAILY 02/26/24 [History] Losartan/Hydrochlorothiazide [Hyzaar 100-25 Tablet] 1 tab PO DAILY 02/26/24 [History] Montelukast [Singulair] 10 mg PO HS 02/26/24 [History] Pravastatin Sodium [Pravachol] 40 mg PO HS 02/26/24 [History] amLODIPine [Norvasc] 10 mg PO DAILY 02/26/24 [History] metFORMIN HCL 1,000 mg PO BID 02/26/24 [History] traZODone HCL [Desyrel] 50 mg PO HS 02/26/24 [History] Albuterol Inhaler [Ventolin Hfa Inhaler] 2 puff INHALATION RT-QID PRN 02/27/24 [History] Amoxic-Pot Clav 875-125Mg [Augmentin 875-125] 1 tab PO BID 12/06/24 [History] Ipratropium Nebulized [Atrovent Nebulized 0.2 MG/ML] 0.5 mg INHALATION RT-QID PRN 12/06/24 [History] Ipratropium/Albuter 20-100Mcg [Combivent Respimat 20-100Mcg Inhaler] 1 puff INHALATION RT-QID 12/06/24 [History] Ondansetron Odt [Zofran ODT] 4 mg PO Q8HR PRN 12/06/24 [History] Tirzepatide [Mounjaro] 12.5 mg SQ SA 12/06/24 [History] Follow up Appointment(s)/Referral(s): Juwan Cohen MD [Primary Care Provider] - 1-2 days Discharge Disposition: HOME SELF-CARE
[2024-12-09] MEDS ORDERED: NON FORMULARY DRUG (Tirzepatide [Mounjaro] 12.5 MG/0.5 ML Pen.Injctr) SQ SCH (19:48)
== END 2024-12-07 15:30 | disposition home or self-care (01) | DRG 312 ==
LOC: EC 12:12 → 4SSUR 13:57
PROVIDERS: ADMIT Hospitalist; ATTEND Hospitalist
DX: R55 Syncope and collapse (principal); E87.1 Hypo-osmolality and hyponatremia; E03.9 Hypothyroidism, unspecified; E11.9 Type 2 diabetes mellitus without complications; I10 Essential (primary) hypertension; M48.02 Spinal stenosis, cervical region; M47.892 Other spondylosis, cervical region; L08.89 Other specified local infections of the skin and subcutaneous tissue; E86.1 Hypovolemia; Z11.52 Encounter for screening for COVID-19; H66.91 Otitis media, unspecified, right ear; I25.10 Atherosclerotic heart disease of native coronary artery without angina pectoris; E87.6 Hypokalemia; Z79.890 Hormone replacement therapy; E83.42 Hypomagnesemia; Z79.84 Long term (current) use of oral hypoglycemic drugs; W19.XXXA Unspecified fall, initial encounter; Z79.899 Other long term (current) drug therapy; Z87.891 Personal history of nicotine dependence; Z88.0 Allergy status to penicillin; Z91.041 Radiographic dye allergy status; Z91.011 Allergy to milk products; Z91.018 Allergy to other foods; Z88.2 Allergy status to sulfonamides; Y92.012 Bathroom of single-family (private) house as the place of occurrence of the external cause; Z79.4 Long term (current) use of insulin
CPT/HCPCS: 36415; 70450; 71045; 72125; 72170; 80053; 80306; 80320; 81003; 82140; 83605; 83735; 83930; 85025; 85610; 85730; 87636; 93005; 94640; 96361; 96365; 96372; 96375; 99285

== ENCOUNTER → 2025-01-05 | Outpatient (CLI) | payer MEDICARE ==
[2025-01-05 16:53] LABS: ALT 14 U/L (8-44); AST 15 U/L (13-35); Chol/HDL Ratio 3.84 Ratio
== END | disposition home or self-care (01) ==
LOC: LABWHC1 10:56
PROVIDERS: ATTEND Internal Medicine Cardiovascular Disease
DX: E78.2 Mixed hyperlipidemia (principal)
CPT/HCPCS: 36415; 80061; 84450; 84460